=== PATIENT | female | born 1945 | race Caucasian/White ===

== ENCOUNTER 2018-08-29 16:39 | Observation (INO) ==
--- NOTE | 2018-08-29 17:13 | ED ---
HPI General Chief Complaint: Altered Mental Status Stated Complaint: Memory Loss x2Days /Poss Hypertension Time Seen by Provider: 08/29/18 16:53 Source: patient and family Mode of arrival: ambulatory Limitations: no limitations History of Present Illness HPI narrative: Pleasant 72-year-old female is brought in by her family who has concerns of change of mental status. Patient denies any nausea vomiting diarrhea or fever. Denies any chest pain shortness of breath urinary or bowel symptoms. Denies any falls or head trauma. States that she has not noticed any facial asymmetry or extremity weakness. Symptom onset 2-3 days. States she does feel a little weird but nothing extreme. Patient did take an aspirin prior to arrival. 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 Completed antivirals. complaint: Reports altered mental status Onset (ago): day(s) (2-3) Timing confirmed by: family member Severity: mild Consistency of symptoms: constant Context: Reports other (Elevated blood pressure) Associated symptoms: Reports denies other symptoms Treatments prior to arrival: Reports other (none) Related Data Home Medications Medication Instructions Recorded Confirmed No Known Home Medications 08/29/18 08/29/18 Allergies Allergy/AdvReac Type Severity Reaction Status Date / Time No Known Allergies Allergy Verified 08/29/18 17:04 Review of Systems ROS: all other systems reviewed are negative [facility] Medical History Medical History Patient denies medical problems (Acute) Surgical History Surgical History History of tubal ligation (Acute) Social History Social History Substance History: No History of Abuse Smoking Status: Never smoker How Often Do You Have a Drink Containing Alcohol: 2 to 4 times a month Recent Travel in [facility] within the Last 8 Weeks: No Recent Out of Country Travel within the Last 8 Weeks: No Immunization History Tetanus Immunization: Unsure Exam Narrative Exam Narrative: GENERAL: Alert SKIN: Focused skin assessment warm/dry. HEAD: Atraumatic. Normocephalic. EYES: Pupils equal and round. No scleral icterus. No injection or drainage. ENT: No nasal bleeding or discharge. Mucous membranes pink and moist. NECK: Trachea midline. No JVD. CARDIOVASCULAR: Regular rate and rhythm. No murmur appreciated. RESPIRATORY: No accessory muscle use. Clear to auscultation. Breath sounds equal bilaterally. GASTROINTESTINAL: Abdomen soft, non-tender, nondistended. Hepatic and splenic margins not palpable. MUSCULOSKELETAL: No obvious deformities. No clubbing. No cyanosis. No edema. NEUROLOGICAL: Awake and alert. No obvious cranial nerve deficits. Motor grossly within normal limits. Normal speech. No extremity drift Patient appears to have intact long-term memory with deficits in short-term memory PSYCHIATRIC: Appropriate mood and affect; insight and judgment normal. Course Initial Documented Vital Signs Temperature 97.5 F L 08/29/18 16:43 Pulse Rate 57 L 08/29/18 16:43 Respiratory Rate 18 08/29/18 16:43 Blood Pressure 243/113 H 08/29/18 16:43 Pulse Oximetry 98 08/29/18 16:43 Last Documented Vital Signs Temperature 97.5 F L 08/29/18 16:43 Pulse Rate 61 08/29/18 17:58 Respiratory Rate 16 08/29/18 17:58 Blood Pressure 197/88 H 08/29/18 17:58 Pulse Oximetry 97 08/29/18 17:58 Medical Decision Making MDM Narrative Medical decision making narrative: Definite change in short-term memory with elevated white count unknown source, I think admission with MRI and neurology consult would be appropriate. Spoke with Dr. Spaulding who is in agreement will admit for observation Medical Screen Exam Complete: Yes Emergency Medical Condition: Yes Differential Diagnosis Differential Diagnosis: CVA, mass occupying lesion, electrolyte abnormality, sepsis Medical Records Medical records reviewed: Yes I reviewed the patient's medical records. Lab Data Lab results reviewed: Yes I reviewed the patient's lab results. Result diagrams: 08/29/18 17:00 08/29/18 17:00 Lab Results 08/29/18 08/29/18 08/29/18 Range/Units 16:57 17:00 17:00 CBC w Diff Auto diff final WBC 14.2 H (4.0-11.0) th/mm3 RBC 4.97 (4.00-5.30) mil/mm3 Hgb 15.4 H (11.6-15.3) gm/dL Hct 45.1 (35.0-46.0) % MCV 90.8 (80.0-100.0) fL MCH 31.0 (27.0-34.0) pg MCHC 34.2 (32.0-36.0) % RDW 11.9 (11.6-17.2) % Plt Count 242 (150-450) th/mm3 MPV 8.5 (7.0-11.0) fL Neut % (Auto) 89.1 H (16.0-70.0) % Lymph % (Auto) 6.2 L (9.0-44.0) % [place] % (Auto) 3.8 (0.0-8.0) % Eos % (Auto) 0.5 (0.0-4.0) % Baso % (Auto) 0.4 (0.0-2.0) % Neut # (Auto) 12.6 H (1.8-7.7) th/mm3 Lymph # (Auto) 0.9 L (1.0-4.8) th/mm3 [place] # (Auto) 0.5 (0.0-0.9) th/mm3 Eos # (Auto) 0.1 (0.0-0.4) th/mm3 Baso # (Auto) 0.1 (0.0-0.2) th/mm3 WBC Differential . Differential Comment . Sodium (136-145) meq/L Potassium (3.5-5.1) meq/L Chloride (98-107) meq/L Carbon Dioxide (21.0-32.0) meq/L Anion Gap (5-15) meq/L BUN (7-18) mg/dL Creatinine (0.50-1.00) mg/dL Estimated GFR (>89) mL/min POC Glucose 115 H (68-110) mg/dl Random Glucose (74-106) mg/dL Lactic Acid (0.4-2.0) mmol/L Calcium (8.5-10.1) mg/dL Magnesium (1.5-2.5) mg/dL Total Bilirubin (0.2-1.0) mg/dL AST (15-37) U/L ALT (10-53) U/L Alkaline Phosphatase (45-117) U/L Ammonia (11-32) mcmol/L Troponin I (0.02-0.05) ng/mL Total Protein (6.4-8.2) g/dL Albumin (3.4-5.0) g/dL Ur Collection Type Clean catch Urine Color Straw (Yellw/Straw) Urine Clarity Clear (Clear) Urine pH 7.5 (5.0-8.5) Ur Specific [place] 1.020 (1.002-1.035) Urine Protein Trace (Neg-Trace) mg/dL Urine Glucose (UA) Negative (Negative) mg/dL Urine Ketones 15 H (Negative) mg/dL Urine Occult Blood Small H (Negative) Urine Nitrate Negative (Negative) Urine Bilirubin Negative (Negative) Urine Urobilinogen 0.2 (Less than 2) mg/dL Ur Leukocyte Esterase Negative (Negative) Urine RBC 0-3 (0-3) /hpf Urine WBC 0-5 (0-5) /hpf Ur Squamous Epith Cells 0-5 (0-5) /hpf Micro UA Comment Culture not ind Ur Microscopic Review Microscopic reviewed Urine Culture Comments Culture not ind 08/29/18 08/29/18 08/29/18 Range/Units 17:00 17:10 17:10 CBC w Diff WBC (4.0-11.0) th/mm3 RBC (4.00-5.30) mil/mm3 Hgb (11.6-15.3) gm/dL Hct (35.0-46.0) % MCV (80.0-100.0) fL MCH (27.0-34.0) pg MCHC (32.0-36.0) % RDW (11.6-17.2) % Plt Count (150-450) th/mm3 MPV (7.0-11.0) fL Neut % (Auto) (16.0-70.0) % Lymph % (Auto) (9.0-44.0) % [place] % (Auto) (0.0-8.0) % Eos % (Auto) (0.0-4.0) % Baso % (Auto) (0.0-2.0) % Neut # (Auto) (1.8-7.7) th/mm3 Lymph # (Auto) (1.0-4.8) th/mm3 [place] # (Auto) (0.0-0.9) th/mm3 Eos # (Auto) (0.0-0.4) th/mm3 Baso # (Auto) (0.0-0.2) th/mm3 WBC Differential Differential Comment Sodium 138 (136-145) meq/L Potassium 3.3 L (3.5-5.1) meq/L Chloride 101 (98-107) meq/L Carbon Dioxide 28.1 (21.0-32.0) meq/L Anion Gap 9 (5-15) meq/L BUN 13 (7-18) mg/dL Creatinine 0.95 (0.50-1.00) mg/dL Estimated GFR 58 L (>89) mL/min POC Glucose (68-110) mg/dl Random Glucose 118 H (74-106) mg/dL Lactic Acid 0.8 (0.4-2.0) mmol/L Calcium 9.1 (8.5-10.1) mg/dL Magnesium 2.2 (1.5-2.5) mg/dL Total Bilirubin 0.5 (0.2-1.0) mg/dL AST 22 (15-37) U/L ALT 35 (10-53) U/L Alkaline Phosphatase 81 (45-117) U/L Ammonia 11 (11-32) mcmol/L Troponin I Less than 0.02 L (0.02-0.05) ng/mL Total Protein 7.5 (6.4-8.2) g/dL Albumin 4.1 (3.4-5.0) g/dL Ur Collection Type Urine Color (Yellw/Straw) Urine Clarity (Clear) Urine pH (5.0-8.5) Ur Specific [place] (1.002-1.035) Urine Protein (Neg-Trace) mg/dL Urine Glucose (UA) (Negative) mg/dL Urine Ketones (Negative) mg/dL Urine Occult Blood (Negative) Urine Nitrate (Negative) Urine Bilirubin (Negative) Urine Urobilinogen (Less than 2) mg/dL Ur Leukocyte Esterase (Negative) Urine RBC (0-3) /hpf Urine WBC (0-5) /hpf Ur Squamous Epith Cells (0-5) /hpf Micro UA Comment Ur Microscopic Review Urine Culture Comments Imaging Data Radiologist's impression: Head CT 08/29/18 17:04 CONCLUSION: 1. No acute intracranial abnormalities. . ECG Data Attestation: I personally reviewed and interpreted this ECG as follows: (Sinus bradycardia, rate of 56, no ST segment elevations or depressions) Discharge Plan Discharge Disposition Patient Disposition: 30 Still Patient Discharge Condition Condition: Fair Discharge Details Diagnosis: Change in mental status, Leukocytosis Physicians Team ED Provider: Ismael Jovel Primary Care Provider: Dell Ennis Rxs /Orders / Referrals /Forms Prescriptions: No Action No Known Home Medications RF: 0 Discharge Interventions Interventions: Vital Signs Last Done: 08/29/18 17:58 Status ED Status: With Doctor
[2018-08-29 17:16] LABS: Bilirubin,Urine Negative (Negative); Clarity,Urine Clear (Clear); Glucose,Urine (UA) Negative (Negative); Leukocyte Esterase,Urine Negative (Negative); Nitrite,Urine Negative (Negative); PH,Urine 7.5 (5.0-8.5); Urobilinogen,Urine 0.2 mg/dL (Less than 2)
[2018-08-29 17:21] LABS: Baso # (Auto) 0.1 th/mm3 (0.0-0.2); Baso % (Auto) 0.4 % (0.0-2.0); Eos # (Auto) 0.1 th/mm3 (0.0-0.4); Eos % (Auto) 0.5 % (0.0-4.0); Hematocrit 45.1 % (35.0-46.0); Hemoglobin 15.4 gm/dL (11.6-15.3); Lymph # (Auto) 0.9 th/mm3 (1.0-4.8); Lymph % (Auto) 6.2 % (9.0-44.0); Mean Corpuscular HGB Conc 34.2 % (32.0-36.0); Mean Corpuscular Volume 90.8 fL (80.0-100.0); Mean Platelet Volume 8.5 fL (7.0-11.0); Mono # (Auto) 0.5 th/mm3 (0.0-0.9); Mono % (Auto) 3.8 % (0.0-8.0); Neut # (Auto) 12.6 th/mm3 (1.8-7.7); Neut % (Auto) 89.1 % (16.0-70.0); Platelet Count 242 th/mm3 (150-450); Red Blood Count 4.97 mil/mm3 (4.00-5.30); Red Cell Distribution Width 11.9 % (11.6-17.2); White Blood Count 14.2 th/mm3 (4.0-11.0)
[2018-08-29 17:28] LABS: Color,Urine Straw (Yellw/Straw)
[2018-08-29 17:30] LABS: RBC,Urine 0-3 /hpf (0-3); Squamous Epithelial Cell,Urine 0-5 /hpf (0-5); WBC,Urine 0-5 /hpf (0-5)
--- NOTE | 2018-08-29 17:34 | CT ---
EXAM DATE: 08/29/2018 5:11 PM EDT AGE/SEX: 72 years / Female INDICATIONS: Altered Mental Status CLINICAL DATA: This is the patient's initial encounter. Patient reports that signs and symptoms have been present for 1 day and indicates a pain score of 0/10. MEDICAL/SURGICAL HISTORY: None. Tubal ligation. RADIATION DOSE: 54.46 CTDI (mGy) COMPARISON: [facility], CT BRAIN W/O CONTRAST, 12/30/2015. . TECHNIQUE: CT of the head without contrast. Using automated exposure control and adjustment of the mA and/or kV according to patient size, radiation dose was kept as low as reasonably achievable to ob tain optimal diagnostic quality images. DICOM format image data is available electronically for revi ew and comparison. FINDINGS: Cerebrum: The ventricles are normal for age. No evidence of midline shift, mass lesion, hemorrhage or acute infarction. No extraaxial fluid collections are seen. Posterior Fossa: The cerebellum and brainstem are intact. The 4th ventricle is midline. The cerebe llopontine angle is unremarkable. Extracranial: The visualized portion of the orbits is intact. Skull: The calvaria is intact. No evidence of skull fracture. CONCLUSION: 1. No acute intracranial abnormalities. . Electronically signed by: Jaison Myles MD 08/29/2018 5:32 PM EDT
[2018-08-29 17:37] LABS: Chloride 101 meq/L (98-107); Potassium 3.3 meq/L (3.5-5.1); Sodium 138 meq/L (136-145)
[2018-08-29 17:40] LABS: Calcium 9.1 mg/dL (8.5-10.1)
[2018-08-29 17:41] LABS: Albumin 4.1 g/dL (3.4-5.0); Anion Gap 9 meq/L (5-15); Blood Urea Nitrogen 13 mg/dL (7-18); Carbon Dioxide 28.1 meq/L (21.0-32.0); Glucose,Random 118 mg/dL (74-106); Magnesium 2.2 mg/dL (1.5-2.5)
[2018-08-29 17:43] LABS: Alanine Aminotransferase 35 U/L (10-53)
[2018-08-29 17:44] LABS: Aspartate Aminotransferase 22 U/L (15-37); Glomerular Filtration Rate 58 mL/min (>89)
[2018-08-29 17:45] LABS: Total Protein 7.5 g/dL (6.4-8.2)
[2018-08-29 17:46] LABS: Alkaline Phosphatase 81 U/L (45-117)
[2018-08-29] MEDS ORDERED: Bisacodyl 10 MG Supp RECTAL PRN (18:15)
[2018-08-29] MEDS ORDERED: Acetaminophen 325 MG Tablet PO PRN (18:15)
[2018-08-29] MEDS: Sod Chloride 0.9% Inj 1,000 ML IV.CONT SCH (18:31)
[2018-08-29] MEDS ORDERED: Gadobutrol PF 7.5 MMOL/7.5 ML Vial (for RAD) IV.SIG ONE (19:24)
--- NOTE | 2018-08-29 19:38 | MR ---
EXAM DATE: 08/29/2018 6:44 PM EDT AGE/SEX: 72 years / Female INDICATIONS: Memory loss. CLINICAL DATA: This is the patient's initial encounter. Patient reports that signs and symptoms have been present for 1 day and indicates a pain score of 0/10. MEDICAL/SURGICAL HISTORY: Hypertension. . Orthopedic. COMPARISON: No prior exams available for comparison. TECHNIQUE: Multiplanar, multisequence examination of the brain was performed without and with 6cc ml Gadavist (gadobutrol) contrast as a single exam dose. FINDINGS: There is abnormal signal in the insular cortex and abnormal signal and encephalomalacia in the left t emporal lobe. This could be related to prior vascular insult or infection or trauma. Mild white matter ischemic changes. No mass effect or midline shift. No hydrocephalus. Postcontrast n o abnormal enhancing lesions are identified. CONCLUSION: 1. Abnormal signal within the insular cortex associated with encephalomalacia of the medial left tem poral lobe including the hippocampal region. Differential diagnosis includes prior infection, trauma or vascular insult. 2. No recent infarct identified. Electronically signed by: Jaison Myles MD 08/29/2018 7:36 PM EDT
[2018-08-29] MEDS: SODIUM CHLOR 0.9% IV.SIG SCH (21:50)
[2018-08-29] MEDS: ACYCLOVIR IV.SIG SCH (21:50)
[2018-08-29] MEDS: Thiamine Inj 100 MG in Sodium Chlor 0.9% Inj 100 ML IV.SIG SCH (21:51)
[2018-08-30] MEDS: Sod Chloride 0.9% Inj 1,000 ML IV.CONT SCH ×3 (05:23→15:25)
[2018-08-30] MEDS: ACYCLOVIR IV.SIG SCH ×3 (06:35→21:00)
[2018-08-30] MEDS: SODIUM CHLOR 0.9% IV.SIG SCH ×3 (06:35→21:00)
[2018-08-30 08:10] LABS: Hematocrit 45.4 % (35.0-46.0); Hemoglobin 15.6 gm/dL (11.6-15.3); Lymph % (Auto) 7.5 % (9.0-44.0); Mean Corpuscular HGB Conc 34.3 % (32.0-36.0); Mean Corpuscular Hemoglobin 30.9 pg (27.0-34.0); Mean Corpuscular Volume 90.1 fL (80.0-100.0); Mean Platelet Volume 9.1 fL (7.0-11.0); Neut % (Auto) 84.1 % (16.0-70.0); Platelet Count 231 th/mm3 (150-450); Red Blood Count 5.04 mil/mm3 (4.00-5.30); Red Cell Distribution Width 12.3 % (11.6-17.2); White Blood Count 14.3 th/mm3 (4.0-11.0)
[2018-08-30 08:11] LABS: Baso # (Auto) 0.2 th/mm3 (0.0-0.2); Baso % (Auto) 1.3 % (0.0-2.0); Eos % (Auto) 0.1 % (0.0-4.0); Lymph # (Auto) 1.1 th/mm3 (1.0-4.8)
[2018-08-30 08:15] LABS: Potassium 4.1 meq/L (3.5-5.1)
[2018-08-30 08:21] LABS: Calcium 8.3 mg/dL (8.5-10.1); Carbon Dioxide 25.2 meq/L (21.0-32.0)
--- NOTE | 2018-08-30 08:54 | P.HPIM ---
History of Present Illness Primary Care Physician: Dell Ennis MD Chief Complaint: confusion History of Present Illness: patient is a 72 y/o female with history of viral encephalitis in the past was brought to ER with altered mentals status. at the time of my evaluation she was awake and fully oriented. she says that she doesn't fully remember what happened yesterday but she says that ' I was brought to ER by my children because I was confused'. she denies any fever or chills. she's complaining of mild headache but with no nausea or vomiting. she was also complaining of some chest pressure with no sob, diaphoresis. Review of Systems All other systems reviewed negative except as stated in HPI PMFSH - History History Provided By: Patient - Medical History Medical History: Medical History (Last Reviewed 08/30/18 @ 08:51 by Logan Spaulding MD) Encephalitis - Surgical History Surgical History: Surgical History (Last Reviewed 08/30/18 @ 08:51 by Logan Spaulding MD) History of tubal ligation - Family History Family History: Family History (Last Reviewed 08/30/18 @ 08:51 by Logan Spaulding MD) Other No pertinent family history - Tobacco History Second Hand Smoke Exposure: No Tobacco Use In Past 30 Days: No Smoking Status: Never smoker - Alcohol History How Often Do You Have a Drink Containing Alcohol: Never - Substance Use History Substance History: No History of Abuse - Travel History Recent Travel in the [place] Within the Last 8 Weeks: No Recent Travel Out of the Country Within the Last 8 Weeks: No - Immunization History Tetanus Immunization: Unsure Medications and Allergies Active Medications: Active Medications Acetaminophen (Tylenol) 650 mg PO Q4H PRN PRN Reason: Temp > 100.4 Al Hydroxide/Mg Hydroxide (Milk Of Magnesia Liq) 30 ml PO Q12H PRN PRN Reason: Mild Constipation Bisacodyl (Dulcolax Supp) 10 mg RECTAL DAILY PRN PRN Reason: SEVERE CONSITIPATION Clonidine HCl (Catapres) 0.1 mg PO Q6H PRN PRN Reason: SYS BP GREATER THAN 180 MMHG Sodium Chloride (Ns Inj) 1,000 mls @ 100 mls/hr IV.CONT .Q10H [facility] Last Admin: 08/30/18 05:23 Dose: 100 mls/hr Acyclovir Sodium 610 mg/ (Sodium Chloride) 112.2 mls @ 112.2 mls/hr IV.SIG Q8H [facility] Last Infusion: 08/30/18 08:00 Dose: Infused Thiamine HCl 100 mg/ Sodium (Chloride) 101 mls @ 100 mls/hr IV.SIG DAILY@1999 [facility] Last Infusion: 08/30/18 01:59 Dose: Infused Lactulose (Lactulose Liq) 30 ml PO DAILY PRN PRN Reason: SEVERE CONSITIPATION Ondansetron HCl (Zofran Inj) 4 mg IV.PUSH Q6H PRN PRN Reason: NAUSEA OR VOMITING Sennosides (Senokot) 17.2 mg PO Q12H PRN PRN Reason: Moderate Constipation Sodium Chloride (Ns Flush) 2 ml IV.FLUSH PRN PRN PRN Reason: FLUSH AFTER USING IV ACCESS Allergies Allergy/AdvReac Type Severity Reaction Status Date / Time No Known Allergies Allergy Verified 08/29/18 17:04 Home Medications Medication Instructions Recorded Confirmed Type No Known Home Medications 08/29/18 08/29/18 History Exam Vital signs: Vital Signs 08/29/18 16:43 08/29/18 17:00 08/29/18 17:18 Temperature 97.5 F L Pulse Rate 57 L 60 Respiratory Rate 18 18 Blood Pressure 243/113 H 166/93 H Pulse Oximetry 98 99 99 08/29/18 17:58 08/29/18 18:55 08/29/18 19:39 Temperature Pulse Rate 61 62 64 Respiratory Rate 16 16 16 Blood Pressure 197/88 H 202/78 H 183/85 H Pulse Oximetry 97 98 98 08/29/18 20:00 08/30/18 00:00 08/30/18 04:00 Temperature 97.2 F L 98.1 F 97.4 F L Pulse Rate 64 60 62 Respiratory Rate 20 20 20 Blood Pressure 197/88 H 179/82 H 160/78 H Pulse Oximetry 98 98 99 Intake & Output 08/29/18 08/30/18 08/30/18 18:59 06:59 18:59 Intake Total 1483.2 / 1483.2 112.2 / 112.2 Balance 1483.2 / 1483.2 112.2 / 112.2 Weight 61.2 kg 61.9 kg Intake: IV 1213.2 / 1213.2 112.2 / 112.2 NS Inj 1,000 ML @ 100 mls/hr IV 1000 / 1000 .CONT .Q10H [facility] Rx#:[id number] Zovirax Inj 610 MG In NS Inj 112.2 / 112.2 112.2 / 112.2 100 ML @ 112.2 mls/hr IV.SIG Q8H [facility] Rx#:[id number] Thiamine Inj 100 MG In NS Inj 101 / 101 100 ML @ 100 mls/hr IV.SIG DAILY@2000 [facility] Rx#:[id number] Oral 270 / 270 Other: # Voids 2 Weight On Admission 61.9 kg - Constitutional no acute distress - Routine HEENT Exam Eye: Present: PERRL - Routine Neck Exam Present: supple - Routine Respiratory Exam Present: CTA bilaterally - Routine Cardiovascular Exam Present: RRR - Routine Abdominal Exam Present: soft - Routine Extremities Exam Comments: no pedal edema. - Routine Neurological Exam Present: alert, oriented X3 Results - Labs CBC & Chem 7: 08/30/18 07:30 08/30/18 07:30 Labs: Short CBC 08/29/18 08/30/18 Range/Units 17:00 07:30 WBC 14.2 H 14.3 H (4.0-11.0) th/mm3 Hgb 15.4 H 15.6 H (11.6-15.3) gm/dL Hct 45.1 45.4 (35.0-46.0) % Plt Count 242 231 (150-450) th/mm3 BMP 08/29/18 08/30/18 17:00 07:30 Sodium 138 139 Potassium 3.3 L 4.1 D Chloride 101 103 Carbon Dioxide 28.1 25.2 BUN 13 8 Creatinine 0.95 0.80 Calcium 9.1 8.3 L D Cardiac Enzymes 08/29/18 Range/Units 17:00 Troponin I Less than 0.02 L (0.02-0.05) ng/mL Liver Function 08/29/18 Range/Units 17:00 Total Bilirubin 0.5 (0.2-1.0) mg/dL AST 22 (15-37) U/L ALT 35 (10-53) U/L Alkaline Phosphatase 81 (45-117) U/L Albumin 4.1 (3.4-5.0) g/dL Urine 08/29/18 Range/Units 17:00 Urine Color Straw (Yellw/Straw) Urine Clarity Clear (Clear) Urine pH 7.5 (5.0-8.5) Ur Specific [place] 1.020 (1.002-1.035) Urine Protein Trace (Neg-Trace) mg/dL Urine Glucose (UA) Negative (Negative) mg/dL - Imaging Impressions Head MRI 08/29/18 00:00 CONCLUSION: 1. 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 Differential diagnosis includes prior infection, trauma or vascular insult. 2. No recent infarct identified. Head CT 08/29/18 17:04 CONCLUSION: 1. No acute intracranial abnormalities. . Caprini VTE Risk Assessment Caprini VTE Risk Assessment: Moderate/High Risk (score >= 2) Caprini Risk Assessment Model: Point Value = 1 Point Value = 2 Point Value = 3 Point Value = 5 Age 41-60 Minor surgery BMI > 25 kg/m2 Swollen legs Varicose veins or History of unexplained or recurrent spontaneous Oral contraceptives or hormone replacement Sepsis (< 1 month) Serious lung disease, including pneumonia (< 1 month) Abnormal pulmonary function Acute myocardial infarction Congestive heart failure (< 1 month) History of inflammatory bowel disease Medical patient at bed rest Age 61-74 Arthroscopic surgery Major open surgery (> 45 min) Laparoscopic surgery (> 45 min) Malignancy Confined to bed (> 72 hours) Immobilizing plaster cast Central venous access Age >= 75 History of VTE Family history of VTE Factor V Leiden Prothrombin [id number] Lupus anticoagulant Anticardiolipin antibodies Elevated serum homocysteine Heparin-induced thrombocytopenia Other congenital or acquired thrombophilia Stroke (< 1 month) Elective arthroplasty Hip, pelvis, or leg fracture Acute spinal cord injury (< 1 month) Prophylaxis Regimen: Total Risk Factor Score Risk Level Prophylaxis Regimen 0-1 Low Early ambulation 2 Moderate Order ONE of the following: *Sequential Compression Device (SCD) *Heparin 5000 units SQ BID 3-4 Higher Order ONE of the following medications: *Heparin 5000 units SQ TID *Enoxaparin/Lovenox 40 mg SQ daily (WT < 150 kg, CrCl > 30 mL/min) *Enoxaparin/Lovenox 30 mg SQ daily (WT < 150 kg, CrCl > 10-29 mL/min) *Enoxaparin/Lovenox 30 mg SQ BID (WT < 150 kg, CrCl > 30 mL/min) AND/OR *Sequential Compression Device (SCD) 5 or more Highest Order ONE of the following medications: *Heparin 5000 units SQ TID (Preferred with Epidurals) *Enoxaparin/Lovenox 40 mg SQ daily (WT < 150 kg, CrCl > 30 mL/min) *Enoxaparin/Lovenox 30 mg SQ daily (WT < 150 kg, CrCl > 10-29 mL/min) *Enoxaparin/Lovenox 30 mg SQ BID (WT < 150 kg, CrCl > 30 mL/min) AND *Sequential Compression Device (SCD) Assessment and Plan - Plan A/P - acute encephalopathy with history of Encephalitis- now has much improved. 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 Differential diagnosis includes prior infection, trauma or vascular insult. continue with Acyclovir- Neurology consulted. -Hypokalemia; replaced. -DVT prophylaxis with SCD's. Discussed Condition With: the patient. Discharge Planning: pending neurology evaluation. H&P: Quality - VTE Deep Vein Thrombosis/Pulmonary Embolism Present on Admission: No
--- NOTE | 2018-08-30 11:57 | P.CONNEU ---
History of Present Illness Service: Neurology Primary Care Provider: Dell Ennis MD Chief Complaint: confusion History of Present Illness: 72-year-old female admitted for confusion. Blood pressure noted to be over 200/ 100 in the ER. She was started on IV acyclovir in the ER. Previous history of herpes encephalitis treated with IV acyclovir and her mental status improved. I believe she was treated 2 or 3 years ago. She was on Keppra Dilantin one-point alert does not appear to be at present. Patient currently denies any headache focal weakness vision loss-like disturbance. States she feels more clear headed. Review of Systems All other systems reviewed negative except as stated in HPI [facility] - History History Provided By: Patient - Medical History Medical History: Medical History (Last Reviewed 08/30/18 @ 09:23 by Tony Acosta) Encephalitis - Surgical History Surgical History: Surgical History (Last Reviewed 08/30/18 @ 09:23 by Tony Acosta) History of tubal ligation - Family History Family History: Family History (Last Reviewed 08/30/18 @ 09:23 by Tony Acosta) Other No pertinent family history - Tobacco History Second Hand Smoke Exposure: No Tobacco Use In Past 30 Days: No Smoking Status: Never smoker - Alcohol History How Often Do You Have a Drink Containing Alcohol: Never - Substance Use History Substance History: No History of Abuse - Travel History Recent Travel in the [place] Within the Last 8 Weeks: No Recent Travel Out of the Country Within the Last 8 Weeks: No - Immunization History Tetanus Immunization: Unsure Medications and Allergies Active Medications: Active Medications Acetaminophen (Tylenol) 650 mg PO Q4H PRN PRN Reason: Temp > 100.4/pain Last Admin: 08/30/18 11:04 Dose: 650 mg Al Hydroxide/Mg Hydroxide (Milk Of Magnbrady Liq) 30 ml PO Q12H PRN PRN Reason: Mild Constipation Bisacodyl (Dulcolax Supp) 10 mg RECTAL DAILY PRN PRN Reason: SEVERE CONSITIPATION Clonidine HCl (Catapres) 0.1 mg PO Q6H PRN PRN Reason: SYS BP GREATER THAN 180 MMHG Sodium Chloride (Ns Inj) 1,000 mls @ 100 mls/hr IV.CONT .Q10H [facility] Last Admin: 08/30/18 10:21 Dose: 100 mls/hr Acyclovir Sodium 610 mg/ (Sodium Chloride) 112.2 mls @ 112.2 mls/hr IV.SIG Q8H [facility] Last Infusion: 08/30/18 08:00 Dose: Infused Thiamine HCl 100 mg/ Sodium (Chloride) 101 mls @ 100 mls/hr IV.SIG DAILY@2000 JULI Last Infusion: 08/30/18 01:59 Dose: Infused Lactulose (Lactulose Liq) 30 ml PO DAILY PRN PRN Reason: SEVERE CONSITIPATION Ondansetron HCl (Zofran Inj) 4 mg IV.PUSH Q6H PRN PRN Reason: NAUSEA OR VOMITING Last Admin: 08/30/18 10:18 Dose: 4 mg Sennosides (Senokot) 17.2 mg PO Q12H PRN PRN Reason: Moderate Constipation Sodium Chloride (Ns Flush) 2 ml IV.FLUSH PRN PRN PRN Reason: FLUSH AFTER USING IV ACCESS Allergies Allergy/AdvReac Type Severity Reaction Status Date / Time No Known Allergies Allergy Verified 08/29/18 17:04 Home Medications Medication Instructions Recorded Confirmed Type No Known Home Medications 08/29/18 08/29/18 History Exam Vital signs: Vital Signs 08/29/18 16:43 08/29/18 17:00 08/29/18 17:18 Temperature 97.5 F L Pulse Rate 57 L 60 Respiratory Rate 18 18 Blood Pressure 243/113 H 166/93 H Pulse Oximetry 98 99 99 08/29/18 17:58 08/29/18 18:55 08/29/18 19:39 Temperature Pulse Rate 61 62 64 Respiratory Rate 16 16 16 Blood Pressure 197/88 H 202/78 H 183/85 H Pulse Oximetry 97 98 98 08/29/18 20:00 08/30/18 00:00 08/30/18 04:00 Temperature 97.2 F L 98.1 F 97.4 F L Pulse Rate 64 60 62 Respiratory Rate 20 20 20 Blood Pressure 197/88 H 179/82 H 160/78 H Pulse Oximetry 98 98 99 08/30/18 08:00 Temperature 98.1 F Pulse Rate 62 Respiratory Rate 16 Blood Pressure 168/86 H Pulse Oximetry 100 Intake & Output 08/29/18 08/30/18 08/30/18 18:59 06:59 18:59 Intake Total 1483.2 / 1483.2 1112.2 / 1112.2 Balance 1483.2 / 1483.2 1112.2 / 1112.2 Weight 61.2 kg 61.9 kg Intake: IV 1213.2 / 1213.2 1112.2 / 1112.2 NS Inj 1,000 ML @ 100 mls/hr IV 1000 / 1000 1000 / 1000 .CONT .Q10H JULI Rx#:[id number] Zovirax Inj 610 MG In NS Inj 112.2 / 112.2 112.2 / 112.2 100 ML @ 112.2 mls/hr IV.SIG Q8H JULI Rx#:[id number] Thiamine Inj 100 MG In NS Inj 101 / 101 100 ML @ 100 mls/hr IV.SIG DAILY@2000 JULI Rx#:[id number] Oral 270 / 270 Other: # Voids 2 Weight On Admission 61.9 kg Narrative: GENERAL: in NAD, looks well SKIN: Warm and dry. HEAD: Atraumatic. Normocephalic. EYES: Pupils equal and round. No scleral icterus. ENT: No nasal bleeding or discharge. Mucous membranes pink and moist. NECK: Trachea midline. No JVD. CARDIOVASCULAR: Regular rate and rhythm. RESPIRATORY: No accessory muscle use. GASTROINTESTINAL: Abdomen soft, non-tender, nondistended. MUSCULOSKELETAL: Extremities without clubbing, cyanosis, or edema. No obvious deformities. NEUROLOGICAL: Awake and alert. Oriented 2-3, slow speech was disoriented to exact date and year, was able to name the current and former president the name of her PCP. Was able to name repeat and repeat. No aphasia, no temporal tenderness, no nuchal rigidity fluent articulate, No facial asymmetry, OU 3-2mm , eomi, VFF, No drift, Motor grossly within normal limits. Five out of 5 muscle strength in the arms and legs. Tone normal in all 4 limbs, Sensory normal in all 4 extremities to pin, msr 1-2+ sym, no clonus, planterflexor, PSYCHIATRIC: Appropriate mood and affect; insight and judgment normal. - Constitutional no acute distress - Routine HEENT Exam Head: Present: normocephalic Eye: Present: EOMI Results - Labs CBC & Chem 7: 08/30/18 07:30 08/30/18 07:30 Labs: Laboratory Results - last 24 hr 08/29/18 08/29/18 08/29/18 16:57 17:00 17:00 CBC w Diff Auto diff final WBC 14.2 H RBC 4.97 Hgb 15.4 H Hct 45.1 MCV 90.8 MCH 31.0 MCHC 34.2 RDW 11.9 Plt Count 242 MPV 8.5 Neut % (Auto) 89.1 H Lymph % (Auto) 6.2 L [place] % (Auto) 3.8 Eos % (Auto) 0.5 Baso % (Auto) 0.4 Neut # (Auto) 12.6 H Lymph # (Auto) 0.9 L [place] # (Auto) 0.5 Eos # (Auto) 0.1 Baso # (Auto) 0.1 WBC Differential . Differential Comment . Sodium Potassium Chloride Carbon Dioxide Anion Gap BUN Creatinine Estimated GFR POC Glucose 115 H Random Glucose Lactic Acid Calcium Magnesium Total Bilirubin AST ALT Alkaline Phosphatase Ammonia Troponin I Total Protein Albumin Ur Collection Type Clean catch Urine Color Straw Urine Clarity Clear Urine pH 7.5 Ur Specific Jackson 1.020 Urine Protein Trace Urine Glucose (UA) Negative Urine Ketones 15 H Urine Occult Blood Small H Urine Nitrate Negative Urine Bilirubin Negative Urine Urobilinogen 0.2 Ur Leukocyte Esterase Negative Urine RBC 0-3 Urine WBC 0-5 Ur Squamous Epith Cells 0-5 Micro UA Comment Culture not ind Ur Microscopic Review Microscopic reviewed Urine Culture Comments Culture not ind 08/29/18 08/29/18 08/29/18 17:00 17:10 17:10 CBC w Diff WBC RBC Hgb Hct MCV MCH MCHC RDW Plt Count MPV Neut % (Auto) Lymph % (Auto) [place] % (Auto) Eos % (Auto) Baso % (Auto) Neut # (Auto) Lymph # (Auto) [place] # (Auto) Eos # (Auto) Baso # (Auto) WBC Differential Differential Comment Sodium 138 Potassium 3.3 L Chloride 101 Carbon Dioxide 28.1 Anion Gap 9 BUN 13 Creatinine 0.95 Estimated GFR 58 L POC Glucose Random Glucose 118 H Lactic Acid 0.8 Calcium 9.1 Magnesium 2.2 Total Bilirubin 0.5 AST 22 ALT 35 Alkaline Phosphatase 81 Ammonia 11 Troponin I Less than 0.02 L Total Protein 7.5 Albumin 4.1 Ur Collection Type Urine Color Urine Clarity Urine pH Ur Specific Jackson Urine Protein Urine Glucose (UA) Urine Ketones Urine Occult Blood Urine Nitrate Urine Bilirubin Urine Urobilinogen Ur Leukocyte Esterase Urine RBC Urine WBC Ur Squamous Epith Cells Micro UA Comment Ur Microscopic Review Urine Culture Comments 08/30/18 08/30/18 08/30/18 07:30 07:30 07:30 CBC w Diff Auto diff final WBC 14.3 H RBC 5.04 Hgb 15.6 H Hct 45.4 MCV 90.1 MCH 30.9 MCHC 34.3 RDW 12.3 Plt Count 231 MPV 9.1 Neut % (Auto) 84.1 H Lymph % (Auto) 7.5 L [place] % (Auto) 7.0 Eos % (Auto) 0.1 Baso % (Auto) 1.3 Neut # (Auto) 12.0 H Lymph # (Auto) 1.1 [place] # (Auto) 1.0 H Eos # (Auto) 0.0 Baso # (Auto) 0.2 WBC Differential . Differential Comment . Sodium 139 Potassium 4.1 D Chloride 103 Carbon Dioxide 25.2 Anion Gap 11 BUN 8 Creatinine 0.80 Estimated GFR 71 L POC Glucose Random Glucose 115 H Lactic Acid Calcium 8.3 L D Magnesium Total Bilirubin AST ALT Alkaline Phosphatase Ammonia Troponin I 0.08 H Total Protein Albumin Ur Collection Type Urine Color Urine Clarity Urine pH Ur Specific Jackson Urine Protein Urine Glucose (UA) Urine Ketones Urine Occult Blood Urine Nitrate Urine Bilirubin Urine Urobilinogen Ur Leukocyte Esterase Urine RBC Urine WBC Ur Squamous Epith Cells Micro UA Comment Ur Microscopic Review Urine Culture Comments - Imaging Impressions Head MRI 08/29/18 00:00 CONCLUSION: 1. 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 Differential diagnosis includes prior infection, trauma or vascular insult. 2. No recent infarct identified. Head CT 08/29/18 17:04 CONCLUSION: 1. No acute intracranial abnormalities. . Review/Management - Diagnosis (1) Hypertensive encephalopathy Code(s): I67.4 - Hypertensive encephalopathy Status: Acute Current Visit: Yes (2) History of herpes encephalitis Code(s): Z86.19 - Personal history of other infectious and parasitic diseases Status: Acute Current Visit: Yes (3) Change in mental status Code(s): R41.82 - Altered mental status, unspecified Status: Acute Current Visit: Yes (4) Leukocytosis Code(s): D72.829 - Elevated white blood cell count, unspecified Status: Acute Current Visit: Yes - Review/Management Plan: Etiologies for recurrent confusion would include hypertensive encephalopathy, versus partial seizures secondary to temporal lobe injury from encephalitis versus recurrent [employer] infection She is supposed to be on Keppra and Dilantin based on previous EEGs. At the least Keppra it appears she is not on any seizure medication at present Recommendation EEG Resume Keppra MRI brain CSF studies IV acyclovir for now Blood pressure control Discussed with patient, medical No driving (3) Change in mental status Qualifiers: Altered mental status type: disorientation Qualified Code(s): R41.0 - Disorientation, unspecified (4) Leukocytosis Qualifiers: Leukocytosis type: unspecified Qualified Code(s): D72.829 - Elevated white blood cell count, unspecified
[2018-08-30] MEDS ORDERED: amLODIPine 5 MG Tablet PO SCH (14:00)
[2018-08-30] MEDS: hydroCHLOROthiazide 25 MG Tablet PO SCH (14:16)
[2018-08-30] MEDS: levETIRAcetam 500 MG Tablet PO SCH ×2 (14:17→20:38)
[2018-08-30 14:52] LABS: C-Reactive Protein 0.45 mg/dL (0.00-0.30)
[2018-08-30 15:02] LABS: Thyroid Stimulating Hormone 0.932 uIU/mL (0.358-3.740)
--- NOTE | 2018-08-30 17:57 | P.RAD ---
Post Procedure Progress Note - Pre Procedure Diagnosis (1) Change in mental status - Post Procedure Diagnosis (1) Change in mental status - Procedure Information Procedure Date: 08/30/18 Supervising Radiologist: Brandon Brandt Jr, MD Proceduralist/Assist: Ulices Pinto Anesthesia: Local - Plan of Activity Patient to Unit: Nursing Unit Patient Condition: Good See PACS Report for procedural detail/treatment. Spinal Procedure Lumbar Puncture L4-L5 Fluid Removal (CCs): 12 Fluid Description: Clear Puncture Time: 17:48 Findings: Clear CSF obtained. Sample to lab. Plan: Bedrest 2 hours.
[2018-08-30 18:52] LABS: Lymphocytes, CSF 0 %; Neutrophils,CSF 0 %; RBC on Tube 4 2 /mm3
[2018-08-30] MEDS: Thiamine Inj 100 MG in Sodium Chlor 0.9% Inj 100 ML IV.SIG SCH (20:38)
--- NOTE | 2018-08-30 21:57 | ECG ---
Date Performed: 08/30/2018 Time Performed: 10:00:08 PTAGE: 72 years EKG: Sinus rhythm NONSPECIFIC T WAVE CHANGES PREVIOUS TRACING : 08/29/2018 17.12 Compared to previous tracing, T wave changes present DOCTOR: Ovi Bashir Interpretating Date/Time 08/30/2018 21:56:03
--- NOTE | 2018-08-30 22:24 | ECG ---
Date Performed: 08/29/2018 Time Performed: 17:12:52 PTAGE: 72 years EKG: SINUS BRADYCARDIA BORDERLINE ECG PREVIOUS TRACING : 11/30/2015 17.22 Compared to previous tracing, rate slower DOCTOR: Ovi Bashir Interpretating Date/Time 08/30/2018 22:23:46
[2018-08-31] MEDS: Sod Chloride 0.9% Inj 1,000 ML IV.CONT SCH ×3 (00:34→22:10)
[2018-08-31] MEDS: SODIUM CHLOR 0.9% IV.SIG SCH ×3 (06:28→22:18)
[2018-08-31] MEDS: ACYCLOVIR IV.SIG SCH ×3 (06:28→22:18)
--- NOTE | 2018-08-31 06:39 | MG ---
cc: Saleem Haddad MD EEG NUMBER: [id number] DESCRIPTION: A 5-6 Hz posterior rhythm, 20-40 microvolts, followed by bursts of 2-3 Hz paroxysmal delta activity. The patient noted to be asleep at that time. Polyfrequency is noted. Appeared to be snoring, poorly formed sleep architecture though. Paroxysmal bursts of 2 Hz high amplitude delta activity. Slight increase in beta frequencies. Reduced driving with photic stimulation. Single lead EKG showing sinus rhythm. INTERPRETATION: Mild encephalopathy in sleep state. Clinical correlation. MD GELY Guajardo/bennie , 06:14 AM , 06:20 AM
[2018-08-31 06:56] LABS: Baso # (Auto) 1.7 th/mm3 (0.0-0.2); Baso % (Auto) 6.5 % (0.0-2.0); Hematocrit 48.7 % (35.0-46.0); Hemoglobin 17.7 gm/dL (11.6-15.3); Lymph # (Auto) 0.9 th/mm3 (1.0-4.8); Lymph % (Auto) 3.3 % (9.0-44.0); Mean Corpuscular Volume 87.8 fL (80.0-100.0); Mean Platelet Volume 9.4 fL (7.0-11.0); Mono # (Auto) 2.3 th/mm3 (0.0-0.9); Neut % (Auto) 81.2 % (16.0-70.0); Platelet Count 253 th/mm3 (150-450); Red Blood Count 5.54 mil/mm3 (4.00-5.30); Red Cell Distribution Width 11.9 % (11.6-17.2); White Blood Count 25.9 th/mm3 (4.0-11.0)
[2018-08-31 07:12] LABS: Mean Corpuscular HGB Conc 36.4 % (32.0-36.0)
[2018-08-31 07:27] LABS: Lymphocytes 4 % (9-44); Monocytes 11 % (0-8)
[2018-08-31 07:28] LABS: Platelet Estimate Normal (Normal); Platelet Morphology Normal (Normal); RBC Morphology Normal (Normal)
--- NOTE | 2018-08-31 07:39 | P.PNIM ---
Subjective Interval history: f/u; altered mental status/ hypertension in no acute distress. denies chest pain, headache or nausea. no fever. BP trend noted. Physical Exam Vital signs: Vital Signs 08/30/18 08:00 08/30/18 12:00 08/30/18 13:23 Temperature 98.1 F 98.0 F Pulse Rate 62 67 Respiratory Rate 16 16 Blood Pressure 168/86 H 198/98 H 200/98 H Pulse Oximetry 100 100 08/30/18 16:00 08/30/18 17:31 08/30/18 17:55 Temperature 98.2 F 98.4 F Pulse Rate 76 76 Respiratory Rate 17 16 Blood Pressure 222/100 H 212/90 H 178/82 H Pulse Oximetry 100 100 08/30/18 20:00 08/30/18 20:52 08/31/18 00:00 Temperature 97.9 F 96.5 F L Pulse Rate 72 76 Respiratory Rate 18 18 Blood Pressure 196/93 H 142/84 H 191/90 H Pulse Oximetry 98 08/31/18 04:00 Temperature 97.9 F Pulse Rate 96 H Respiratory Rate 18 Blood Pressure 185/96 H Pulse Oximetry 97 Intake & Output 08/30/18 08/31/18 08/31/18 18:59 06:59 18:59 Intake Total 1944.4 / 1944.4 1243.2 / 1243.2 Output Total 200 / 200 Balance 1944.4 / 1944.4 1043.2 / 1043.2 Weight 63 kg Intake: IV 1224.4 / 1224.4 1213.2 / 1213.2 NS Inj 1,000 ML @ 100 mls/hr IV 1000 / 1000 1000 / 1000 .CONT .Q10H JULI Rx#:[id number] Zovirax Inj 610 MG In NS Inj 224.4 / 224.4 112.2 / 112.2 100 ML @ 112.2 mls/hr IV.SIG Q8H JULI Rx#:[id number] Thiamine Inj 100 MG In NS Inj 101 / 101 100 ML @ 100 mls/hr IV.SIG DAILY@2000 JULI Rx#:[id number] Oral 720 / 720 30 / 30 Output: Urine 200 / 200 Other: # Voids 4 # Bowel Movements 0 - Constitutional no acute distress - Routine Respiratory Exam Present: CTA bilaterally - Routine Cardiovascular Exam Present: RRR - Routine Abdominal Exam Present: soft - Routine Extremities Exam Comments: no pedal edema. - Routine Neurological Exam Present: alert Results - Labs CBC & Chem 7: 08/31/18 06:30 08/30/18 07:30 Laboratory Results - last 24 hr 08/30/18 08/30/18 08/30/18 07:30 07:30 07:30 CBC w Diff Auto diff final WBC 14.3 H RBC 5.04 Hgb 15.6 H Hct 45.4 MCV 90.1 MCH 30.9 MCHC 34.3 RDW 12.3 Plt Count 231 MPV 9.1 Neut % (Auto) 84.1 H Lymph % (Auto) 7.5 L [place] % (Auto) 7.0 Eos % (Auto) 0.1 Baso % (Auto) 1.3 Neut # (Auto) 12.0 H Lymph # (Auto) 1.1 [place] # (Auto) 1.0 H Eos # (Auto) 0.0 Baso # (Auto) 0.2 WBC Differential . Seg Neuts % (Manual) Band Neuts % (Manual) Lymphocytes % (Manual) Monocytes % (Manual) Abs Neuts (Manual) Differential Comment . Platelet Estimate Platelet Morphology RBC Morphology Sodium 139 Potassium 4.1 D Chloride 103 Carbon Dioxide 25.2 Anion Gap 11 BUN 8 Creatinine 0.80 Estimated GFR 71 L POC Glucose Random Glucose 115 H Calcium 8.3 L D Troponin I 0.08 H C-Reactive Protein Vitamin B12 TSH CSF Volume (1) CSF Supernat Color (1) CSF Gross Blood (1) CSF Volume (2) CSF Supernat Color (2) CSF Gross Blood (2) CSF Volume (3) CSF Supernat Color (3) CSF Gross Blood (3) CSF Volume (4) CSF Supernat Color (4) CSF Gross Blood (4) CSF WBC (4) CSF RBC (4) CSF Neutrophils % CSF Lymphocytes % CSF Glucose CSF Total Protein 08/30/18 08/30/18 08/30/18 07:30 07:30 13:31 CBC w Diff WBC RBC Hgb Hct MCV MCH MCHC RDW Plt Count MPV Neut % (Auto) Lymph % (Auto) [place] % (Auto) Eos % (Auto) Baso % (Auto) Neut # (Auto) Lymph # (Auto) [place] # (Auto) Eos # (Auto) Baso # (Auto) WBC Differential Seg Neuts % (Manual) Band Neuts % (Manual) Lymphocytes % (Manual) Monocytes % (Manual) Abs Neuts (Manual) Differential Comment Platelet Estimate Platelet Morphology RBC Morphology Sodium Potassium Chloride Carbon Dioxide Anion Gap BUN Creatinine Estimated GFR POC Glucose 153 H Random Glucose Calcium Troponin I C-Reactive Protein Cancelled 0.45 H Vitamin B12 384 TSH 0.932 CSF Volume (1) CSF Supernat Color (1) CSF Gross Blood (1) CSF Volume (2) CSF Supernat Color (2) CSF Gross Blood (2) CSF Volume (3) CSF Supernat Color (3) CSF Gross Blood (3) CSF Volume (4) CSF Supernat Color (4) CSF Gross Blood (4) CSF WBC (4) CSF RBC (4) CSF Neutrophils % CSF Lymphocytes % CSF Glucose CSF Total Protein 08/30/18 08/30/18 08/30/18 14:45 17:48 17:48 CBC w Diff WBC RBC Hgb Hct MCV MCH MCHC RDW Plt Count MPV Neut % (Auto) Lymph % (Auto) [place] % (Auto) Eos % (Auto) Baso % (Auto) Neut # (Auto) Lymph # (Auto) [place] # (Auto) Eos # (Auto) Baso # (Auto) WBC Differential Seg Neuts % (Manual) Band Neuts % (Manual) Lymphocytes % (Manual) Monocytes % (Manual) Abs Neuts (Manual) Differential Comment Platelet Estimate Platelet Morphology RBC Morphology Sodium Potassium Chloride Carbon Dioxide Anion Gap BUN Creatinine Estimated GFR POC Glucose Random Glucose Calcium Troponin I 0.13 H C-Reactive Protein Vitamin B12 TSH CSF Volume (1) 3.0 CSF Supernat Color (1) Clear CSF Gross Blood (1) 0 CSF Volume (2) 2.8 CSF Supernat Color (2) Clear CSF Gross Blood (2) 0 CSF Volume (3) 2.0 CSF Supernat Color (3) Clear CSF Gross Blood (3) 0 CSF Volume (4) 2.8 CSF Supernat Color (4) Clear CSF Gross Blood (4) 0 CSF WBC (4) 0 CSF RBC (4) 2 H CSF Neutrophils % 0 CSF Lymphocytes % 0 CSF Glucose 69 CSF Total Protein 08/30/18 08/30/18 08/31/18 17:48 20:46 06:30 CBC w Diff Slide review pending WBC 25.9 H D RBC 5.54 H Hgb 17.7 H D Hct 48.7 H MCV 87.8 MCH 32.0 MCHC 36.4 H RDW 11.9 Plt Count 253 MPV 9.4 Neut % (Auto) 81.2 H Lymph % (Auto) 3.3 L [place] % (Auto) 9.0 H Eos % (Auto) 0.0 Baso % (Auto) 6.5 H Neut # (Auto) 21.0 H Lymph # (Auto) 0.9 L [place] # (Auto) 2.3 H Eos # (Auto) 0.0 Baso # (Auto) 1.7 H WBC Differential Manual diff final Seg Neuts % (Manual) 82 H Band Neuts % (Manual) 3 Lymphocytes % (Manual) 4 L Monocytes % (Manual) 11 H Abs Neuts (Manual) 22.0 H Differential Comment . Platelet Estimate Normal Platelet Morphology Normal RBC Morphology Normal Sodium Potassium Chloride Carbon Dioxide Anion Gap BUN Creatinine Estimated GFR POC Glucose Random Glucose Calcium Troponin I 0.10 H C-Reactive Protein Vitamin B12 TSH CSF Volume (1) CSF Supernat Color (1) CSF Gross Blood (1) CSF Volume (2) CSF Supernat Color (2) CSF Gross Blood (2) CSF Volume (3) CSF Supernat Color (3) CSF Gross Blood (3) CSF Volume (4) CSF Supernat Color (4) CSF Gross Blood (4) CSF WBC (4) CSF RBC (4) CSF Neutrophils % CSF Lymphocytes % CSF Glucose CSF Total Protein 54.3 H Microbiology 08/30/18 17:48 Lumbar Puncture Gram Stain - Final - Procedures LP Assessment and Plan - Plan A/P - acute encephalopathy with history of Encephalitis- now has much improved. 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 Differential diagnosis includes prior infection, trauma or vascular insult. s/p LP; HSV PCR and cultures pending. continue with Acyclovir/ Keppra was added- Neurology consult appreciated- EEG with mild Encephalopathy. -hypertension; patient is not on any home meds and says that she was trying to control the blood pressure with diet. increase Amlodipine to 10 mg daily- continue HCTZ- continue IV Vasotec prn- will monitor and adjust the regimen as needed. -leukocytosis- afebrile-will obtain the blood cultures. will monitor; repeat CBC in am. -elevated troponin with reported chest pain ( 08/30); troponin level stable- currently chest pain free- cardiology consulted. -Hypokalemia; replaced. -DVT prophylaxis with SCD's. Discharge Planning: not ready for discharge. w/u pending. consult PT.
--- NOTE | 2018-08-31 08:20 | IR ---
EXAM DATE: 08/30/2018 11:30 AM EDT AGE/SEX: 72 years / Female INDICATIONS: Patient presents with altered mental status in need of lumbar puncture for further eval uation. CLINICAL DATA: This is the patient's initial encounter. Patient reports that signs and symptoms have been present for 1 day and indicates a pain score of 7/10. MEDICAL/SURGICAL HISTORY: . Encephalitis history. . Tubal ligation. COMPARISON: No prior exams available for comparison. FLUORO TIME (min): 0.45 IMAGE SERIES: 1 ACCESS SITE: L4-5 LUMBAR PUNCTURE TIME: 17:48 hours CLOSING PRESSURE: not requested FLUID: Total volume of 12 cc of clear fluid was removed. Fluid was sent to lab for ordered studies. ; . . PROCEDURE: 1. Fluoroscopic guided lumbar puncture. The risks, benefits and alternatives to the procedure were explained and verbal and written consent w as obtained. The site was prepped in sterile fashion. Full sterile technique was used, including ca p, mask, sterile gloves and gown and a large sterile sheet. Hand hygiene and 2% chlorhexidine and/or betadine/alcohol prep was utilized per protocol for cutaneous antisepsis. The skin and subcutaneous tissues were infiltrated with local anesthetic solution. With fluoroscopic guidance the lumbar thecal sac was punctured at the level above. The fluid describ ed above was removed without difficulty. The patient tolerated the procedure well and there were no complications. CONCLUSION: 1. Uncomplicated fluoroscopically guided lumbar puncture. Clear CSF noted. Samples to the lab as req uested. Electronically signed by: Brandon Brandt MD 08/31/2018 8:19 AM EDT
[2018-08-31] MEDS: hydroCHLOROthiazide 25 MG Tablet PO SCH (08:35)
[2018-08-31] MEDS: amLODIPine 10 MG Tablet PO SCH (08:35)
[2018-08-31] MEDS: levETIRAcetam 500 MG Tablet PO SCH ×2 (08:35→22:16)
--- NOTE | 2018-08-31 10:10 | P.PNNEU ---
Subjective Subjective Comments: No cp, no dyspnea, no maldonado, no focal weakness, no vision loss Active Medications: Active Medications Acetaminophen (Tylenol) 650 mg PO Q4H PRN PRN Reason: Temp > 100.4/pain Last Admin: 08/30/18 11:04 Dose: 650 mg Al Hydroxide/Mg Hydroxide (Milk Of Magnesia Liq) 30 ml PO Q12H PRN PRN Reason: Mild Constipation Amlodipine Besylate (Norvasc) 10 mg PO DAILY [facility] Last Admin: 08/31/18 08:35 Dose: 10 mg Bisacodyl (Dulcolax Supp) 10 mg RECTAL DAILY PRN PRN Reason: SEVERE CONSITIPATION Clonidine HCl (Catapres) 0.1 mg PO Q6H PRN PRN Reason: SYS BP GREATER THAN 180 MMHG Last Admin: 08/30/18 12:29 Dose: 0.1 mg Enalaprilat (Vasotec Inj) 1.25 mg IV.PUSH Q8H PRN PRN Reason: SBP > 180 or DBP > 100 Last Admin: 08/30/18 16:26 Dose: 1.25 mg Hydrochlorothiazide (Hydrodiuril) 25 mg PO DAILY [facility] Last Admin: 08/31/18 08:35 Dose: 25 mg Sodium Chloride (Ns Inj) 1,000 mls @ 100 mls/hr IV.CONT .Q10H [facility] Last Admin: 08/31/18 00:34 Dose: 100 mls/hr Acyclovir Sodium 610 mg/ (Sodium Chloride) 112.2 mls @ 112.2 mls/hr IV.SIG Q8H [facility] Last Infusion: 08/31/18 07:51 Dose: Infused Thiamine HCl 100 mg/ Sodium (Chloride) 101 mls @ 100 mls/hr IV.SIG DAILY@2000 [facility] Last Infusion: 08/31/18 00:34 Dose: Infused Lactulose (Lactulose Liq) 30 ml PO DAILY PRN PRN Reason: SEVERE CONSITIPATION Levetiracetam (Keppra) 500 mg PO BID [facility] Last Admin: 08/31/18 08:35 Dose: 500 mg Ondansetron HCl (Zofran Inj) 4 mg IV.PUSH Q6H PRN PRN Reason: NAUSEA OR VOMITING Last Admin: 08/30/18 10:18 Dose: 4 mg Sennosides (Senokot) 17.2 mg PO Q12H PRN PRN Reason: Moderate Constipation Sodium Chloride (Ns Flush) 2 ml IV.FLUSH PRN PRN PRN Reason: FLUSH AFTER USING IV ACCESS Allergies/Adverse Reactions: Allergies Allergy/AdvReac Type Severity Reaction Status Date / Time No Known Allergies Allergy Verified 08/29/18 17:04 Review of Systems All other systems reviewed negative except as stated in HPI Physical Exam Vital signs: Vital Signs 08/30/18 12:00 08/30/18 13:23 08/30/18 16:00 Temperature 98.0 F 98.2 F Pulse Rate 67 76 Respiratory Rate 16 17 Blood Pressure 198/98 H 200/98 H 222/100 H Pulse Oximetry 100 100 08/30/18 17:31 08/30/18 17:55 08/30/18 20:00 Temperature 98.4 F 97.9 F Pulse Rate 76 72 Respiratory Rate 16 18 Blood Pressure 212/90 H 178/82 H 196/93 H Pulse Oximetry 100 98 08/30/18 20:52 08/31/18 00:00 08/31/18 04:00 Temperature 96.5 F L 97.9 F Pulse Rate 76 96 H Respiratory Rate 18 18 Blood Pressure 142/84 H 191/90 H 185/96 H Pulse Oximetry 97 08/31/18 08:00 Temperature 98.4 F Pulse Rate 92 H Respiratory Rate 20 Blood Pressure 154/93 H Pulse Oximetry 96 Intake & Output 08/30/18 08/31/18 08/31/18 18:59 06:59 18:59 Intake Total 1944.4 / 1944.4 1243.2 / 1243.2 352.2 / 352.2 Output Total 200 / 200 200 / 200 Balance 1944.4 / 1944.4 1043.2 / 1043.2 152.2 / 152.2 Weight 63 kg Intake: IV 1224.4 / 1224.4 1213.2 / 1213.2 112.2 / 112.2 NS Inj 1,000 ML @ 100 mls/hr IV 1000 / 1000 1000 / 1000 .CONT .Q10H [facility] Rx#:[id number] Zovirax Inj 610 MG In NS Inj 224.4 / 224.4 112.2 / 112.2 112.2 / 112.2 100 ML @ 112.2 mls/hr IV.SIG Q8H [facility] Rx#:[id number] Thiamine Inj 100 MG In NS Inj 101 / 101 100 ML @ 100 mls/hr IV.SIG DAILY@2000 [facility] Rx#:[id number] Oral 720 / 720 30 / 30 240 / 240 Output: Urine 200 / 200 200 / 200 Other: # Voids 4 # Bowel Movements 0 Narrative: GENERAL: in NAD, looks well SKIN: Warm and dry. HEAD: Atraumatic. Normocephalic. EYES: Pupils equal and round. No scleral icterus. ENT: No nasal bleeding or discharge. Mucous membranes pink and moist. NECK: Trachea midline. CARDIOVASCULAR: Regular rate and rhythm. RESPIRATORY: No accessory muscle use. GASTROINTESTINAL: Abdomen soft, non-tender, nondistended. MUSCULOSKELETAL: Extremities without clubbing, cyanosis, or edema. No obvious deformities. NEUROLOGICAL: Awake and alert. Oriented 2, did not know the year, remember seeing me yesterday but uncertain what my role her title is, articulate, No facial asymmetry, , eomi, VFF, No drift, Motor grossly within normal limits. Five out of 5 muscle strength in the arms and legs. Tone normal in all 4 limbs, gait not assessed secondary to fall risk PSYCHIATRIC: Appropriate mood and affect; insight and judgment normal. - Constitutional no acute distress - Routine HEENT Exam Head: Present: normocephalic Eye: Present: EOMI Objective Laboratory Results - last 24 hr 08/30/18 08/30/18 08/30/18 07:30 07:30 07:30 CBC w Diff WBC RBC Hgb Hct MCV MCH MCHC RDW Plt Count MPV Neut % (Auto) Lymph % (Auto) [place] % (Auto) Eos % (Auto) Baso % (Auto) Neut # (Auto) Lymph # (Auto) [place] # (Auto) Eos # (Auto) Baso # (Auto) WBC Differential Seg Neuts % (Manual) Band Neuts % (Manual) Lymphocytes % (Manual) Monocytes % (Manual) Abs Neuts (Manual) Differential Comment Platelet Estimate Platelet Morphology RBC Morphology POC Glucose Troponin I 0.08 H C-Reactive Protein Cancelled 0.45 H Vitamin B12 384 TSH 0.932 CSF Volume (1) CSF Supernat Color (1) CSF Gross Blood (1) CSF Volume (2) CSF Supernat Color (2) CSF Gross Blood (2) CSF Volume (3) CSF Supernat Color (3) CSF Gross Blood (3) CSF Volume (4) CSF Supernat Color (4) CSF Gross Blood (4) CSF WBC (4) CSF RBC (4) CSF Neutrophils % CSF Lymphocytes % CSF Glucose CSF Total Protein 08/30/18 08/30/18 08/30/18 13:31 14:45 17:48 CBC w Diff WBC RBC Hgb Hct MCV MCH MCHC RDW Plt Count MPV Neut % (Auto) Lymph % (Auto) [place] % (Auto) Eos % (Auto) Baso % (Auto) Neut # (Auto) Lymph # (Auto) [place] # (Auto) Eos # (Auto) Baso # (Auto) WBC Differential Seg Neuts % (Manual) Band Neuts % (Manual) Lymphocytes % (Manual) Monocytes % (Manual) Abs Neuts (Manual) Differential Comment Platelet Estimate Platelet Morphology RBC Morphology POC Glucose 153 H Troponin I 0.13 H C-Reactive Protein Vitamin B12 TSH CSF Volume (1) 3.0 CSF Supernat Color (1) Clear CSF Gross Blood (1) 0 CSF Volume (2) 2.8 CSF Supernat Color (2) Clear CSF Gross Blood (2) 0 CSF Volume (3) 2.0 CSF Supernat Color (3) Clear CSF Gross Blood (3) 0 CSF Volume (4) 2.8 CSF Supernat Color (4) Clear CSF Gross Blood (4) 0 CSF WBC (4) 0 CSF RBC (4) 2 H CSF Neutrophils % 0 CSF Lymphocytes % 0 CSF Glucose CSF Total Protein 08/30/18 08/30/18 08/30/18 17:48 17:48 20:46 CBC w Diff WBC RBC Hgb Hct MCV MCH MCHC RDW Plt Count MPV Neut % (Auto) Lymph % (Auto) [place] % (Auto) Eos % (Auto) Baso % (Auto) Neut # (Auto) Lymph # (Auto) [place] # (Auto) Eos # (Auto) Baso # (Auto) WBC Differential Seg Neuts % (Manual) Band Neuts % (Manual) Lymphocytes % (Manual) Monocytes % (Manual) Abs Neuts (Manual) Differential Comment Platelet Estimate Platelet Morphology RBC Morphology POC Glucose Troponin I 0.10 H C-Reactive Protein Vitamin B12 TSH CSF Volume (1) CSF Supernat Color (1) CSF Gross Blood (1) CSF Volume (2) CSF Supernat Color (2) CSF Gross Blood (2) CSF Volume (3) CSF Supernat Color (3) CSF Gross Blood (3) CSF Volume (4) CSF Supernat Color (4) CSF Gross Blood (4) CSF WBC (4) CSF RBC (4) CSF Neutrophils % CSF Lymphocytes % CSF Glucose 69 CSF Total Protein 54.3 H 08/31/18 06:30 CBC w Diff Slide review pending WBC 25.9 H D RBC 5.54 H Hgb 17.7 H D Hct 48.7 H MCV 87.8 MCH 32.0 MCHC 36.4 H RDW 11.9 Plt Count 253 MPV 9.4 Neut % (Auto) 81.2 H Lymph % (Auto) 3.3 L [place] % (Auto) 9.0 H Eos % (Auto) 0.0 Baso % (Auto) 6.5 H Neut # (Auto) 21.0 H Lymph # (Auto) 0.9 L [place] # (Auto) 2.3 H Eos # (Auto) 0.0 Baso # (Auto) 1.7 H WBC Differential Manual diff final Seg Neuts % (Manual) 82 H Band Neuts % (Manual) 3 Lymphocytes % (Manual) 4 L Monocytes % (Manual) 11 H Abs Neuts (Manual) 22.0 H Differential Comment . Platelet Estimate Normal Platelet Morphology Normal RBC Morphology Normal POC Glucose Troponin I C-Reactive Protein Vitamin B12 TSH CSF Volume (1) CSF Supernat Color (1) CSF Gross Blood (1) CSF Volume (2) CSF Supernat Color (2) CSF Gross Blood (2) CSF Volume (3) CSF Supernat Color (3) CSF Gross Blood (3) CSF Volume (4) CSF Supernat Color (4) CSF Gross Blood (4) CSF WBC (4) CSF RBC (4) CSF Neutrophils % CSF Lymphocytes % CSF Glucose CSF Total Protein Microbiology 08/30/18 17:48 Gram Stain - Final Lumbar Puncture Review/Management - Diagnosis (1) Hypertensive encephalopathy Code(s): I67.4 - Hypertensive encephalopathy Status: Acute Current Visit: Yes (2) History of herpes encephalitis Code(s): Z86.19 - Personal history of other infectious and parasitic diseases Status: Acute Current Visit: Yes (3) Change in mental status Code(s): R41.82 - Altered mental status, unspecified Status: Acute Current Visit: Yes (4) Leukocytosis Code(s): D72.829 - Elevated white blood cell count, unspecified Status: Acute Current Visit: Yes - Review/Management Plan: Etiologies for recurrent confusion would include hypertensive encephalopathy, versus partial seizures secondary to temporal lobe injury from encephalitis versus 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 At the least Keppra it appears she is not on any seizure medication at present EEG; no active seizures however paroxysmal prominent sharply contoured delta activity Resume Keppra MRI brain; old scar tissue in the temporal lobe no acute lesion Recommendation CSF studies no leukocytosis, mildly elevated protein level however. Gram stain negative; await herpes PCR. If negative discharge planning IV acyclovir until PCR returns Blood pressure control Discussed with patient, and spouse at bedside Further outpatient cognitive testing No driving (3) Change in mental status Qualifiers: Altered mental status type: disorientation Qualified Code(s): R41.0 - Disorientation, unspecified (4) Leukocytosis Qualifiers: Leukocytosis type: unspecified Qualified Code(s): D72.829 - Elevated white blood cell count, unspecified
[2018-08-31] MEDS ORDERED: Regadenoson Inj 0.4 MG/5 ML Syringe IV.PUSH ONE (14:00)
--- NOTE | 2018-08-31 14:47 | NM ---
EXAM DATE: 08/31/2018 12:54 PM EDT AGE/SEX: 72 years / Female INDICATIONS:Angina. . CLINICAL DATA: This is the patient's initial encounter. Patient reports that signs and symptoms have been present for 1 day and indicates a pain score of 6/10. MEDICAL/SURGICAL HISTORY: . Encephalitis. Tubal ligation. COMPARISON: No prior exams available for comparison. DOSE: 8.3 mCi Tc 99m Myoview at rest 25.6 mCi [id number] at stress 0.4 mg Lexiscan STRESS SYMPTOMS: None. EJECTION FRACTION: 70 % TECHNIQUE: The patient underwent pharmacologic stress with infusion of prescribed dose. Continuous ECG tracing was monitored during stress. Gated SPECT imaging was performed after stress and conventi onal SPECT imaging was performed at rest. The examination was performed on a SPECT/CT scanner, both attenuation and non-corrected datasets were reviewed. FINDINGS: Distribution: The maximum perfused segment at stress is in the anterior wall. Perfusion Study: The pattern of perfusion at stress is within normal limits. Gated Study: There are intact wall motion and wall thickening. There appears to be some focal dyskin esia involving the anterior apical wall.. The ejection fraction is calculated at 70%. RISK CATEGORY: Low (<1% Annual Motality Rate) CONCLUSION: 1. No evidence to suggest ischemic myocardial changes. 2. Focal dyskinesia involving the anteroapical wall. Electronically signed by: Ga Wong MD 08/31/2018 2:45 PM EDT
[2018-08-31] MEDS: Thiamine Inj 100 MG in Sodium Chlor 0.9% Inj 100 ML IV.SIG SCH (22:20)
[2018-09-01] MEDS: SODIUM CHLOR 0.9% IV.SIG SCH ×3 (06:06→21:57)
[2018-09-01] MEDS: ACYCLOVIR IV.SIG SCH ×3 (06:06→21:57)
[2018-09-01 06:28] LABS: Baso # (Auto) 0.3 th/mm3 (0.0-0.2); Baso % (Auto) 1.4 % (0.0-2.0); Lymph # (Auto) 0.9 th/mm3 (1.0-4.8); Lymph % (Auto) 3.7 % (9.0-44.0); Mean Corpuscular HGB Conc 34.1 % (32.0-36.0); Mean Corpuscular Hemoglobin 31.1 pg (27.0-34.0); Mean Corpuscular Volume 91.3 fL (80.0-100.0); Mean Platelet Volume 8.6 fL (7.0-11.0); Mono # (Auto) 1.7 th/mm3 (0.0-0.9); Mono % (Auto) 7.4 % (0.0-8.0); Neut # (Auto) 20.2 th/mm3 (1.8-7.7); Neut % (Auto) 87.5 % (16.0-70.0); Platelet Count 190 th/mm3 (150-450); Red Blood Count 4.82 mil/mm3 (4.00-5.30); Red Cell Distribution Width 11.8 % (11.6-17.2); White Blood Count 23.1 th/mm3 (4.0-11.0)
[2018-09-01 07:03] LABS: Calcium 8.1 mg/dL (8.5-10.1); Carbon Dioxide 25.5 meq/L (21.0-32.0)
[2018-09-01] MEDS: Sod Chloride 0.9% Inj 1,000 ML IV.CONT SCH ×3 (07:03→15:21)
[2018-09-01 07:07] LABS: Potassium 2.9 meq/L (3.5-5.1)
[2018-09-01] MEDS: levETIRAcetam 500 MG Tablet PO SCH ×2 (08:30→20:36)
[2018-09-01] MEDS: amLODIPine 10 MG Tablet PO SCH (08:30)
--- NOTE | 2018-09-01 09:52 | P.PNIM ---
Subjective Interval history: f/u; possible encephalitis in no acute distress. afebrile. no chest pain or sob. no headache or nausea. BP trend noted. Physical Exam Vital signs: Vital Signs 08/31/18 12:00 08/31/18 16:00 08/31/18 20:00 Temperature 99.2 F 97.3 F L 99.2 F Pulse Rate 95 H 100 H 108 H Respiratory Rate 20 22 18 Blood Pressure 168/93 H 156/75 H 133/78 Pulse Oximetry 98 97 97 09/01/18 00:00 09/01/18 04:00 09/01/18 09:07 Temperature 97.6 F 97.5 F L 99.4 F Pulse Rate 80 76 114 H Respiratory Rate 18 18 16 Blood Pressure 134/67 129/67 132/68 Pulse Oximetry 95 93 L 95 Intake & Output 08/31/18 09/01/18 09/01/18 18:59 06:59 18:59 Intake Total 1704.4 / 1704.4 1563.2 / 1563.2 112.2 / 112.2 Output Total 200 / 200 500 / 500 Balance 1504.4 / 1504.4 1063.2 / 1063.2 112.2 / 112.2 Weight 122.2 kg Intake: IV 1224.4 / 1224.4 1213.2 / 1213.2 112.2 / 112.2 NS Inj 1,000 ML @ 100 mls/hr IV 1000 / 1000 1000 / 1000 .CONT .Q10H [facility] Rx#:[id number] Zovirax Inj 610 MG In NS Inj 224.4 / 224.4 112.2 / 112.2 112.2 / 112.2 100 ML @ 112.2 mls/hr IV.SIG Q8H [facility] Rx#:[id number] Thiamine Inj 100 MG In NS Inj 101 / 101 100 ML @ 100 mls/hr IV.SIG DAILY@2000 [facility] Rx#:[id number] Oral 480 / 480 350 / 350 Tube Feeding 0 / 0 Output: Urine 200 / 200 500 / 500 - Constitutional no acute distress - Routine Respiratory Exam Present: CTA bilaterally - Routine Cardiovascular Exam Present: RRR - Routine Abdominal Exam Present: soft - Routine Extremities Exam Comments: no pedal edema. - Routine Neurological Exam Present: alert, oriented X3 Results - Labs CBC & Chem 7: 09/01/18 06:05 09/01/18 06:05 Laboratory Results - last 24 hr 09/01/18 09/01/18 06:05 06:05 CBC w Diff Slide review pending WBC 23.1 H RBC 4.82 Hgb 15.0 D Hct 44.0 MCV 91.3 D MCH 31.1 MCHC 34.1 RDW 11.8 Plt Count 190 MPV 8.6 Neut % (Auto) 87.5 H Lymph % (Auto) 3.7 L [place] % (Auto) 7.4 Eos % (Auto) 0.0 Baso % (Auto) 1.4 Neut # (Auto) 20.2 H Lymph # (Auto) 0.9 L [place] # (Auto) 1.7 H Eos # (Auto) 0.0 Baso # (Auto) 0.3 H WBC Differential . Diff Scan Auto diff confirmed Differential Comment . Sodium 132 L Potassium 2.9 L* D Chloride 97 L Carbon Dioxide 25.5 Anion Gap 10 BUN 20 H Creatinine 0.87 Estimated GFR 64 L Random Glucose 103 Calcium 8.1 L Microbiology 08/30/18 17:48 Lumbar Puncture Gram Stain - Final 08/30/18 17:48 Lumbar Puncture CSF Culture - Preliminary No growth in 24 hours - Imaging Impressions Myocardial Perfusion Scan Nuc Med 08/31/18 00:00 CONCLUSION: 1. No evidence to suggest ischemic myocardial changes. 2. Focal dyskinesia involving the anteroapical wall. - Procedures LP Assessment and Plan - Plan A/P - acute encephalopathy with history of Encephalitis- now has much improved. 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 Differential diagnosis includes prior infection, trauma or vascular insult. s/p LP; HSV PCR and cultures negative so far. continue with Acyclovir/ Keppra was added- Neurology consult appreciated- EEG with mild Encephalopathy. -hypertension; patient is not on any home meds and says that she was trying to control the blood pressure with diet. BP has improved; increase Amlodipine to 10 mg daily- continue HCTZ- continue IV Vasotec prn- will monitor and adjust the regimen as needed. -leukocytosis- persistent but afebrile-blood cultures pending- consult ID. -elevated troponin with reported chest pain ( 08/30); troponin level stable- currently chest pain free- cardiology consulted. previously d/w ; stress test with no ischemia but with anteroapical wall focal dyskinesia; will check echo. -Hypokalemia; will replace and monitor. -DVT prophylaxis with SCD's. Discharge Planning: not ready for discharge. w/u pending. consulted PT.
[2018-09-01] MEDS: hydroCHLOROthiazide 25 MG Tablet PO SCH (10:52)
--- NOTE | 2018-09-01 11:20 | ECHRPT ---
Indication: Chest Pain CONCLUSIONS Normal left ventricular size. Wall thickness is normal. The left ventricular systolic function is normal with an estimated ejection fraction in the range of 60-65%. No regional wall motion abnormalities are present. There is trace tricuspid valve regurgitation. The estimated pulmonary arterial pressure is 33 mmHg. BP: / HR: Rhythm: MEASUREMENTS (Male / Female) Normal Values Technical Quality:Fair 2D ECHO LV Diastolic Diameter PLAX 3.5 cm 4.2 - 5.9 / 3.9 - 5.3 cm LV Systolic Diameter PLAX 2.2 cm IVS Diastolic Thickness 1.0 cm 0.6 - 1.0 / 0.6 - 0.9 cm LVPW Diastolic Thickness 1.0 cm 0.6 - 1.0 / 0.6 - 0.9 cm LV Relative Wall Thickness 0.6 RV Internal Dim ED PLAX 2.8 cm LVOT Diameter 1.8 cm Aortic Root Diameter 3.2 cm LA Systolic Diameter LX 3.0 cm 3.0 - 4.0 / 2.7 - 3.8 cm DOPPLER AV Peak Velocity 141.0 cm/s AV Peak Gradient 8.0 mmHg LVOT Peak Velocity 119.0 cm/s LVOT Peak Gradient 5.7 mmHg AV Area Cont Eq pk 2.1 cm Mitral E Point Velocity 75.4 cm/s Mitral A Point Velocity 112.0 cm/s Mitral E to A Ratio 0.7 LV E' Lateral Velocity 11.3 cm/s Mitral E to LV E' Lateral Ratio 6.7 LV E' Septal Velocity 8.0 cm/s Mitral E to LV E' Septal Ratio 9.4 TR Peak Velocity 240.0 cm/s TR Peak Gradient 23.0 mmHg Right Atrial Pressure 10.0 mmHg Pulmonary Artery Systolic Pressu 33.0 mmHg Right Ventricular Systolic Press 33.0 mmHg PV Peak Velocity 99.1 cm/s PV Peak Gradient 3.9 mmHg FINDINGS LEFT VENTRICLE Normal left ventricular size. Wall thickness is normal. The left ventricular systolic function is normal with an estimated ejection fraction in the range of 60-65%. No regional wall motion abnormalities are present. RIGHT VENTRICLE Normal right ventricular size and systolic function. LEFT ATRIUM The left atrial size is normal. RIGHT ATRIUM The right atrial size is normal. ATRIAL SEPTUM Normal atrial septal thickness without atrial level shunting by limited color doppler interrogation. AORTA The aortic root and proximal ascending aorta are normal in size on limited imaging. MITRAL VALVE Structurally normal mitral valve. No mitral valve stenosis or regurgitation. AORTIC VALVE Trileaflet aortic valve. No aortic valve stenosis or regurgitation. TRICUSPID VALVE There is trace tricuspid valve regurgitation. The estimated pulmonary arterial pressure is 33 mmHg. PULMONARY VALVE No pulmonary valve regurgitation or stenosis. VESSELS The inferior vena cava is normal in size. PERICARDIUM No pericardial effusion. Sergio Whittaker MD (Electronically Signed) Final Date:01 September 2018 11:19
[2018-09-01] MEDS ORDERED: Regadenoson Inj 0.4 MG/5 ML Syringe IV.PUSH ONE (15:50)
--- NOTE | 2018-09-01 16:30 | MB ---
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 HISTORY OF PRESENT ILLNESS: This is a 72-year-old white female who was brought to the emergency department on 08/29/2018 with altered mental status. The patient was noted to have some problems with mental status deterioration approximately 2 days prior and this continued and she was brought to the emergency department for evaluation. 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 Lumbar puncture was performed. The lumbar puncture revealed 0 white cells and 2 red cells, glucose of 69, protein mildly elevated at 54. The patient was started on acyclovir. Studies on the CSF included herpes PCR, which has returned positive for herpes 1. The patient was treated for herpes encephalitis 2 years ago. Currently, she is awake and alert and answers all my questions without difficulty. She recalls family member's names and other events without difficulties. She has no headache, nausea, vomiting. She states that her appetite for the food here is not good. She has no visual blurring or diplopia. She denies all other symptomatology except for feeling slightly weak. PAST MEDICAL HISTORY: Encephalitis. PAST SURGICAL HISTORY: Tubal ligation. ALLERGIES: NO KNOWN DRUG ALLERGIES. MEDICATIONS: 1. IV acyclovir 2. Norvasc. 3. Catapres. 4. Vasotec. 5. Hydrochlorothiazide. 6. Keppra. 7. Potassium. 8. Thiamine. SOCIAL HISTORY: No tobacco, never smoked. No alcohol. No illicit drugs. FAMILY HISTORY: Noncontributory. REVIEW OF SYSTEMS: All systems have been reviewed and are negative. PHYSICAL EXAMINATION: GENERAL: This is a well-developed, slender female who is in no acute distress. She is awake and alert and oriented. VITAL SIGNS: Temperature 96.3, BP 148/72, respirations 18, heart rate 93. HEENT: Head atraumatic. Extraocular movements grossly intact. Pupils are reactive to light. The pupils are constricted. No icterus. No conjunctival erythema. Oropharynx moist mucosa without lesions. NECK: Supple. No adenopathy. No swelling. LUNGS: Clear to auscultation. Heart, regular rate and rhythm. No murmurs, rubs or gallops. ABDOMEN: Bowel sounds present. Soft, nontender. No masses palpable. RECTAL: Not performed. EXTREMITIES: No clubbing, cyanosis or edema. SKIN: No rash. NEUROLOGIC: Nonfocal. PSYCHIATRIC: The patient pleasant, calm and cooperative. LABORATORY DATA: WBC 23.1, platelets 190. Hemoglobin 15.0, 87% neutrophils. Creatinine 0.87, BUN 20, sodium 132, potassium 2.9. IMPRESSIONS: 1. 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 She did not have any sequelae from the prior episode which was treated. 2. Leukocytosis. Questionable etiology. Probably this is reactive. No symptomatology suggesting another source of infection. RECOMMENDATIONS: 1. Continue acyclovir for a total of 21 days. After that, the patient should be given maintenance treatment with valacyclovir p.o. She should be referred to follow with Neurology or Infectious Disease after discharge from the hospital. 2. Monitor the white blood cell count and observe for clinical signs of another source of infection such as a UTI, but it would not need additional antibiotic treatment at this time. 3. Monitor blood cultures, which were obtained yesterday. The patient appears to be improved significantly. A determination will have to be made about the antibiotics, whether to administer antibiotics at a nursing facility or at home. We will need to monitor renal function while on the IV acyclovir. Thank you for this consultation. The patient's progress will be monitored along with you and further recommendations will be given on followup if necessary. MD SHRUTHI Dawson/hermila , 03:48 PM , 04:03 PM
[2018-09-01] MEDS: Thiamine Inj 100 MG in Sodium Chlor 0.9% Inj 100 ML IV.SIG SCH (20:20)
[2018-09-02] MEDS: Sod Chloride 0.9% Inj 1,000 ML IV.CONT SCH ×2 (03:26→17:00)
[2018-09-02] MEDS: SODIUM CHLOR 0.9% IV.SIG SCH ×3 (04:52→22:15)
[2018-09-02] MEDS: ACYCLOVIR IV.SIG SCH ×3 (04:52→22:15)
[2018-09-02 06:32] LABS: Baso # (Auto) 0.3 th/mm3 (0.0-0.2); Baso % (Auto) 1.9 % (0.0-2.0); Eos % (Auto) 0.2 % (0.0-4.0); Hematocrit 42.3 % (35.0-46.0); Hemoglobin 14.3 gm/dL (11.6-15.3); Lymph # (Auto) 1.2 th/mm3 (1.0-4.8); Lymph % (Auto) 7.7 % (9.0-44.0); Mean Corpuscular HGB Conc 33.8 % (32.0-36.0); Mean Corpuscular Hemoglobin 30.8 pg (27.0-34.0); Mean Platelet Volume 8.4 fL (7.0-11.0); Mono # (Auto) 1.2 th/mm3 (0.0-0.9); Mono % (Auto) 7.8 % (0.0-8.0); Neut # (Auto) 12.5 th/mm3 (1.8-7.7); Neut % (Auto) 82.4 % (16.0-70.0); Platelet Count 217 th/mm3 (150-450); Red Blood Count 4.64 mil/mm3 (4.00-5.30); Red Cell Distribution Width 11.8 % (11.6-17.2); White Blood Count 15.2 th/mm3 (4.0-11.0)
[2018-09-02 07:06] LABS: Calcium 8.2 mg/dL (8.5-10.1); Carbon Dioxide 26.4 meq/L (21.0-32.0); Potassium 3.7 meq/L (3.5-5.1)
[2018-09-02] MEDS: amLODIPine 10 MG Tablet PO SCH (09:57)
[2018-09-02] MEDS: hydroCHLOROthiazide 25 MG Tablet PO SCH (09:57)
[2018-09-02] MEDS: levETIRAcetam 500 MG Tablet PO SCH ×2 (09:57→21:11)
--- NOTE | 2018-09-02 10:53 | P.PNIM ---
Subjective Interval history: f/u; viral encephalitis in no acute distress. no headache. afebrile. Physical Exam Vital signs: Vital Signs 09/01/18 12:09 09/01/18 12:41 09/01/18 15:54 Temperature 96.3 F L Pulse Rate 92 H 93 H 97 H Respiratory Rate 18 Blood Pressure 148/72 H Pulse Oximetry 97 09/01/18 18:15 09/01/18 20:00 09/02/18 00:00 Temperature 98.3 F 99.0 F 96.1 F L Pulse Rate 112 H 96 H 100 H Respiratory Rate 16 16 16 Blood Pressure 149/97 H 141/82 H 142/72 H Pulse Oximetry 96 97 97 09/02/18 00:10 09/02/18 04:00 09/02/18 08:00 Temperature 97.1 F L 98.2 F Pulse Rate 95 H 99 H 100 H Respiratory Rate 16 16 Blood Pressure 145/73 H 168/77 H Pulse Oximetry 97 95 Intake & Output 09/01/18 09/02/18 09/02/18 18:59 06:59 18:59 Intake Total 724.4 / 724.4 1925.4 / 1925.4 Balance 724.4 / 724.4 1925.4 / 1925.4 Weight 122.2 kg Intake: IV 224.4 / 224.4 1325.4 / 1325.4 NS Inj 1,000 ML @ 100 mls/hr IV 1000 / 1000 .CONT .Q10H [facility] Rx#:[id number] Zovirax Inj 610 MG In NS Inj 224.4 / 224.4 224.4 / 224.4 100 ML @ 112.2 mls/hr IV.SIG Q8H [facility] Rx#:[id number] Thiamine Inj 100 MG In NS Inj 101 / 101 100 ML @ 100 mls/hr IV.SIG DAILY@2000 [facility] Rx#:[id number] Oral 500 / 500 600 / 600 Other: # Voids 2 2 - Constitutional no acute distress - Routine Respiratory Exam Present: CTA bilaterally - Routine Cardiovascular Exam Present: RRR - Routine Abdominal Exam Present: soft - Routine Extremities Exam Comments: no pedal edema. - Routine Neurological Exam Present: alert, oriented X3 Results - Labs CBC & Chem 7: 09/02/18 06:10 09/02/18 06:10 Laboratory Results - last 24 hr 08/30/18 09/02/18 09/02/18 17:48 06:10 06:10 CBC w Diff Slide review pending WBC 15.2 H RBC 4.64 Hgb 14.3 Hct 42.3 MCV 91.0 MCH 30.8 MCHC 33.8 RDW 11.8 Plt Count 217 MPV 8.4 Neut % (Auto) 82.4 H Lymph % (Auto) 7.7 L [place] % (Auto) 7.8 Eos % (Auto) 0.2 Baso % (Auto) 1.9 Neut # (Auto) 12.5 H Lymph # (Auto) 1.2 [place] # (Auto) 1.2 H Eos # (Auto) 0.0 Baso # (Auto) 0.3 H WBC Differential . Diff Scan Auto diff confirmed Differential Comment . Sodium 137 Potassium 3.7 D Chloride 101 Carbon Dioxide 26.4 Anion Gap 10 BUN 15 Creatinine 0.83 Estimated GFR 68 L Random Glucose 85 Calcium 8.2 L CSF Herpes I DNA (PCR) Positive CSF Herpes II DNA (PCR) Negative Microbiology 08/30/18 17:48 Lumbar Puncture Gram Stain - Final 08/30/18 17:48 Lumbar Puncture CSF Culture - Final No growth in 72 hours 08/31/18 11:30 Blood - Peripheral Aerobic Blood Culture - Preliminary No growth in 1 day 08/31/18 11:30 Blood - Peripheral Anaerobic Blood Culture - Preliminary No growth in 1 day 08/31/18 11:20 Blood - Peripheral Aerobic Blood Culture - Preliminary No growth in 1 day 08/31/18 11:20 Blood - Peripheral Anaerobic Blood Culture - Preliminary No growth in 1 day - Procedures LP Assessment and Plan - Plan A/P - acute encephalopathy due to viral Encephalitis- now has much improved. 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 Differential diagnosis includes prior infection, trauma or vascular insult. s/p LP; HSV PCR positive- cultures negative so far. continue with Acyclovir/ Keppra was added- Neurology consult appreciated- EEG with mild Encephalopathy. ID consult appreciated. -hypertension; patient is not on any home meds and says that she was trying to control the blood pressure with diet. BP has improved; continue Amlodipine 10 mg daily- continue HCTZ- continue IV Vasotec prn- will monitor and adjust the regimen as needed. -leukocytosis-improving and afebrile-blood cultures negative so far- consulted ID as noted above. -elevated troponin with reported chest pain ( 08/30); troponin level stable- currently chest pain free- stress test with no ischemia but with anteroapical wall focal dyskinesia. echo with EF 60% and no regional wall motion abnormalities- previously d/w and no further w/u at this time. -Hypokalemia; replaced. -DVT prophylaxis with SCD's. Discharge Planning: dc home within the next 24-48 hrs if stable and cleared by ID.
--- NOTE | 2018-09-02 16:03 | P.DCO ---
- Physical Therapy Order: Evaluate and treat - Home Health Nursing Order: Medical education, Signs/symptoms of disease process, Medication education-adverse effect, Nursing assessment with vital signs, IV medication administration - Case Management Consult Yes - Certification I have seen patient Marga Rosenbaum on 09/02/18. My clinical findings support the need for the requested home health care services because: Limited mobility due to disease progression I certify that my clinical findings support that this patient is homebound because: Unsteady gait/balance
--- NOTE | 2018-09-02 17:33 | P.PNID ---
Subjective Remarks: Patient feels okay. Says she is walking okay. Clear mentation. No nausea. Denies TORRES. Afebrile. CSF HSV 1 positive. This is a 72-year-old white female who was brought to the emergency department on 08/29/2018 with altered mental status. The patient was noted to have some problems with mental status deterioration approximately 2 days prior and this continued and she was brought to the emergency department for evaluation. 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 Lumbar puncture was performed. The lumbar puncture revealed 0 white cells and 2 red cells, glucose of 69, protein mildly elevated at 54. The patient was started on acyclovir. The patient was treated for herpes encephalitis 2 years ago. Past Medical History: PAST MEDICAL HISTORY: Encephalitis. PAST SURGICAL HISTORY: Tubal ligation. Allergies/Adverse Reactions: Allergies No Known Allergies Allergy (Verified 08/29/18 17:04) Objective Vital Signs 09/01/18 18:15 09/01/18 20:00 09/02/18 00:00 Temperature 98.3 F 99.0 F 96.1 F L Pulse Rate 112 H 96 H 100 H Respiratory Rate 16 16 16 Blood Pressure 149/97 H 141/82 H 142/72 H Pulse Oximetry 96 97 97 09/02/18 00:10 09/02/18 04:00 09/02/18 08:00 Temperature 97.1 F L 98.2 F Pulse Rate 95 H 99 H 100 H Respiratory Rate 16 16 Blood Pressure 145/73 H 168/77 H Pulse Oximetry 97 95 09/02/18 12:00 09/02/18 16:00 Temperature 98.0 F 98.6 F Pulse Rate 107 H 106 H Respiratory Rate 16 16 Blood Pressure 154/74 H 144/73 H Pulse Oximetry 96 96 Intake & Output 09/01/18 09/02/18 09/02/18 18:59 06:59 18:59 Intake Total 724.4 / 724.4 1925.4 / 1925.4 1000 / 1000 Balance 724.4 / 724.4 1925.4 / 1925.4 1000 / 1000 Weight 122.2 kg Intake: IV 224.4 / 224.4 1325.4 / 1325.4 1000 / 1000 NS Inj 1,000 ML @ 100 mls/hr IV 1000 / 1000 1000 / 1000 .CONT .Q10H [facility] Rx#:[id number] Zovirax Inj 610 MG In NS Inj 224.4 / 224.4 224.4 / 224.4 100 ML @ 112.2 mls/hr IV.SIG Q8H [facility] Rx#:[id number] Thiamine Inj 100 MG In NS Inj 101 / 101 100 ML @ 100 mls/hr IV.SIG DAILY@2000 [facility] Rx#:[id number] Oral 500 / 500 600 / 600 Other: # Voids 2 2 08/31/18 11:30 Blood - Peripheral Aerobic Blood Culture - Preliminary No growth in 2 days 08/31/18 11:30 Blood - Peripheral Anaerobic Blood Culture - Preliminary No growth in 2 days 08/31/18 11:20 Blood - Peripheral Aerobic Blood Culture - Preliminary No growth in 2 days 08/31/18 11:20 Blood - Peripheral Anaerobic Blood Culture - Preliminary No growth in 2 days 08/30/18 17:48 Lumbar Puncture Gram Stain - Final 08/30/18 17:48 Lumbar Puncture CSF Culture - Final No growth in 72 hours Lab - Hematology Results 09/01/18 09/02/18 06:05 06:10 CBC w Diff Slide review pending Slide review pending WBC 23.1 H 15.2 H RBC 4.82 4.64 Hgb 15.0 D 14.3 Hct 44.0 42.3 MCV 91.3 D 91.0 MCH 31.1 30.8 MCHC 34.1 33.8 RDW 11.8 11.8 Plt Count 190 217 MPV 8.6 8.4 Neut % (Auto) 87.5 H 82.4 H Lymph % (Auto) 3.7 L 7.7 L [place] % (Auto) 7.4 7.8 Eos % (Auto) 0.0 0.2 Baso % (Auto) 1.4 1.9 Neut # (Auto) 20.2 H 12.5 H Lymph # (Auto) 0.9 L 1.2 [place] # (Auto) 1.7 H 1.2 H Eos # (Auto) 0.0 0.0 Baso # (Auto) 0.3 H 0.3 H WBC Differential . . Diff Scan Auto diff confirmed Auto diff confirmed Differential Comment . . Lab - Chemistry Results 09/01/18 09/02/18 06:05 06:10 Sodium 132 L 137 Potassium 2.9 L* D 3.7 D Chloride 97 L 101 Carbon Dioxide 25.5 26.4 Anion Gap 10 10 BUN 20 H 15 Creatinine 0.87 0.83 Estimated GFR 64 L 68 L Random Glucose 103 85 Calcium 8.1 L 8.2 L Imaging: ITS Impressions Head MRI 08/29/18 00:00 CONCLUSION: 1. 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 Differential diagnosis includes prior infection, trauma or vascular insult. 2. No recent infarct identified. Head CT 08/29/18 17:04 CONCLUSION: 1. No acute intracranial abnormalities. . Lumbar Puncture Fluoroscopy 08/30/18 11:30 CONCLUSION: 1. Uncomplicated fluoroscopically guided lumbar puncture. Clear CSF noted. Samples to the lab as requested. Myocardial Perfusion Scan Nuc Med 08/31/18 00:00 CONCLUSION: 1. No evidence to suggest ischemic myocardial changes. 2. Focal dyskinesia involving the anteroapical wall. Physical Exam: PHYSICAL EXAMINATION: GENERAL: No acute distress. HEENT: Head atraumatic. Extraocular movements grossly intact. Pupils are reactive to light. The pupils are constricted. No icterus. No conjunctival erythema. Oropharynx moist mucosa without lesions. NECK: Supple. No adenopathy. No swelling. LUNGS: Clear to auscultation. Heart, regular rate and rhythm. No murmurs, rubs or gallops. ABDOMEN: Bowel sounds present. Soft, nontender. EXTREMITIES: No clubbing, cyanosis or edema. SKIN: No rash. NEUROLOGIC: Nonfocal. PSYCHIATRIC: Pleasant, calm and cooperative. Assessment and Plan - Plan IMPRESSIONS: 1. 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 She did not have any sequelae from the prior episode which was treated. 2. Leukocytosis. Questionable etiology. Probably this is reactive. WBC improving. RECOMMENDATIONS: Continue acyclovir for a total of 21 days. After that, the patient should probably be given maintenance treatment with anti viral. She should be referred to follow with Neurology or Infectious Disease after discharge from the hospital. Arrange for PIC line and outpatient antibiotics if possible. Orders will be written to initiate process of outpatient treatment. Discussed with Dr Spaulding.
--- NOTE | 2018-09-02 17:43 | P.DCO ---
Post Hospital Infusion Therapy - Infusion Therapy Location of Infusion Therapy: Home Health Care IV Infusion Order - Patient Information Patient Weight: 122.2 kg - Additional Information Additional Medications: Acyclovir 610mg IV Q 8 hrs until 09/19/2018 Venous Access: PICC Line Additional Instructions: [x] Peripheral flush and dressing changes per protocol [x] Implanted port and central gas line servicer: * Implanted port: 10 ml Normal Saline followed by 5 ml Heparin 100 units/ml Heparin flush after each use and monthly to maintain. [] May leave port accessed during therapy. [] May leave peripheral site accessed for duration of therapy. [x] If patient has SOB or respiratory distress, check oxygen saturation. If less than 90% or clinical signs of respiratory distress, administer oxygen at 2 L/min. via nasal cannula and notify physician. [x] Anaphylaxis/Reaction orders: * Stop infusion. * Keep IV line open with saline flush. * Notify physician. * Monitor vital signs every 15 minutes until symptoms resolve. * Check Oxygen saturation; Oxygen at 2 L/min. via nasal cannula if less than 90% or clinical signs of respiratory distress. * Administer diphenhydramine (Benadryl) 25 mg IV STAT, (unless patient has received as pre-med). May repeat once, if necessary. * Solu-Cortef 250 mg IVP over 30-60 seconds, use 100 mg vials for each dissolution. * Epinephrine (1mg/1 ml) 0.3 mg subcutaneously or IVP now with any signs of respiratory distress. * Check with physician for new additional pre-med orders if patient is re- challenged or re-treated. [x] May remove PICC line when treatment complete, after confirming with Physician. [x] If the patient is admitted to the hospital, the ED, or transferred via [facility] , complete transfer form including medication reconciliation order sheet. Additional Information: bmp every 3 days while on Acyclovir. Follow up with Dr Jiang - infectious disease in 1 week. Call if creatinine greater than 2.[address] Viveros [phone] Fax number [phone]. - Patient Information Allergies No Known Allergies Allergy (Verified 08/29/18 17:04)
[2018-09-02] MEDS: Thiamine Inj 100 MG in Sodium Chlor 0.9% Inj 100 ML IV.SIG SCH (21:10)
[2018-09-03] MEDS: Sod Chloride 0.9% Inj 1,000 ML IV.CONT SCH ×2 (01:37→10:17)
[2018-09-03] MEDS: ACYCLOVIR IV.SIG SCH (05:44)
[2018-09-03] MEDS: SODIUM CHLOR 0.9% IV.SIG SCH (05:44)
[2018-09-03 06:44] LABS: Baso % (Auto) 0.4 % (0.0-2.0); Eos # (Auto) 0.1 th/mm3 (0.0-0.4); Hematocrit 38.6 % (35.0-46.0); Hemoglobin 13.3 gm/dL (11.6-15.3); Lymph # (Auto) 0.9 th/mm3 (1.0-4.8); Lymph % (Auto) 9.6 % (9.0-44.0); Mean Corpuscular HGB Conc 34.4 % (32.0-36.0); Mean Corpuscular Hemoglobin 31.2 pg (27.0-34.0); Mean Corpuscular Volume 90.7 fL (80.0-100.0); Mean Platelet Volume 7.4 fL (7.0-11.0); Mono # (Auto) 0.9 th/mm3 (0.0-0.9); Mono % (Auto) 9.5 % (0.0-8.0); Neut # (Auto) 7.9 th/mm3 (1.8-7.7); Neut % (Auto) 79.5 % (16.0-70.0); Platelet Count 241 th/mm3 (150-450); Red Blood Count 4.26 mil/mm3 (4.00-5.30); Red Cell Distribution Width 11.6 % (11.6-17.2); White Blood Count 9.8 th/mm3 (4.0-11.0)
--- NOTE | 2018-09-03 09:08 | P.PNIM ---
Subjective Interval history: f/u; viral encephalitis overall looks and feels much better. no headache. no fever. wants to go home. Physical Exam Vital signs: Vital Signs 09/02/18 12:00 09/02/18 16:00 09/02/18 20:00 Temperature 98.0 F 98.6 F Pulse Rate 107 H 106 H 89 Respiratory Rate 16 16 Blood Pressure 154/74 H 144/73 H Pulse Oximetry 96 96 09/02/18 21:43 09/03/18 00:00 09/03/18 04:00 Temperature 98.7 F 99.0 F 98.7 F Pulse Rate 93 H 117 H 90 Respiratory Rate 16 16 16 Blood Pressure 160/89 H 136/76 139/81 Pulse Oximetry 94 L 95 93 L Intake & Output 09/02/18 09/03/18 09/03/18 18:59 06:59 18:59 Intake Total 1720 / 1720 1205.4 / 1205.4 112.2 / 112.2 Balance 1720 / 1720 1205.4 / 1205.4 112.2 / 112.2 Weight 122.2 kg 122.2 kg Intake: IV 1000 / 1000 325.4 / 325.4 112.2 / 112.2 NS Inj 1,000 ML @ 100 mls/hr IV 1000 / 1000 .CONT .Q10H [facility] Rx#:[id number] Zovirax Inj 610 MG In NS Inj 224.4 / 224.4 112.2 / 112.2 100 ML @ 112.2 mls/hr IV.SIG Q8H [facility] Rx#:[id number] Thiamine Inj 100 MG In NS Inj 101 / 101 100 ML @ 100 mls/hr IV.SIG DAILY@2000 [facility] Rx#:[id number] Oral 720 / 720 880 / 880 Other: # Voids 5 2 # Bowel Movements 0 - Constitutional no acute distress - Routine Respiratory Exam Present: CTA bilaterally - Routine Cardiovascular Exam Present: RRR - Routine Abdominal Exam Present: soft - Routine Extremities Exam Comments: no pedal edema. - Routine Neurological Exam Present: alert, oriented X3 Results - Labs CBC & Chem 7: 09/03/18 06:30 09/02/18 06:10 Laboratory Results - last 24 hr 09/03/18 06:30 CBC w Diff Auto diff final WBC 9.8 RBC 4.26 Hgb 13.3 Hct 38.6 MCV 90.7 MCH 31.2 MCHC 34.4 RDW 11.6 Plt Count 241 MPV 7.4 Neut % (Auto) 79.5 H Lymph % (Auto) 9.6 [place] % (Auto) 9.5 H Eos % (Auto) 1.0 Baso % (Auto) 0.4 Neut # (Auto) 7.9 H Lymph # (Auto) 0.9 L [place] # (Auto) 0.9 Eos # (Auto) 0.1 Baso # (Auto) 0.0 WBC Differential . Differential Comment . Microbiology 08/31/18 11:30 Blood - Peripheral Aerobic Blood Culture - Preliminary No growth in 2 days 08/31/18 11:30 Blood - Peripheral Anaerobic Blood Culture - Preliminary No growth in 2 days 08/31/18 11:20 Blood - Peripheral Aerobic Blood Culture - Preliminary No growth in 2 days 08/31/18 11:20 Blood - Peripheral Anaerobic Blood Culture - Preliminary No growth in 2 days 08/30/18 17:48 Lumbar Puncture Gram Stain - Final 08/30/18 17:48 Lumbar Puncture CSF Culture - Final No growth in 72 hours - Procedures LP Assessment and Plan - Plan A/P - acute encephalopathy due to viral Encephalitis- now has much improved. 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 Differential diagnosis includes prior infection, trauma or vascular insult. s/p LP; HSV PCR positive- cultures negative so far. continue with Acyclovir/ Keppra was added- Neurology consult appreciated- EEG with mild Encephalopathy. ID consult appreciated and plan for 21 days of IV Acyclovir. patient needs to have a f/u with ID and Neurology; maintenance therapy will be deferred to outpatient f/u with ID and neurology. -hypertension; patient is not on any home meds and says that she was trying to control the blood pressure with diet. BP has improved; continue Amlodipine 10 mg daily- continue HCTZ- -leukocytosis-improving and afebrile-blood cultures negative so far- consulted ID as noted above. -elevated troponin with reported chest pain ( 08/30); troponin level stable- currently chest pain free- stress test with no ischemia but with anteroapical wall focal dyskinesia. echo with EF 60% and no regional wall motion abnormalities- previously d/w and no further w/u at this time. -Hypokalemia; replaced. -DVT prophylaxis with SCD's. Discharge Planning: dc home today with HHC- when PICC line in place and outpatient IV antiviral has been set up. see med list. f/u; pcp, ID and neurology. d/w the patient. previously d/w .
--- NOTE | 2018-09-03 09:08 | P.DS ---
Date of admission: 08/29/18 18:19 Primary care physician: Dell Ennis MD Brief History from admission: patient is a 72 y/o female with history of viral encephalitis in the past was brought to ER with altered mentals status. at the time of my evaluation she was awake and fully oriented. she says that she doesn't fully remember what happened yesterday but she says that ' I was brought to ER by my children because I was confused'. she denies any fever or chills. she's complaining of mild headache but with no nausea or vomiting. she was also complaining of some chest pressure with no sob, diaphoresis. DS: Summary Hospital Course: - acute encephalopathy due to viral Encephalitis- now has much improved. 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 Differential diagnosis includes prior infection, trauma or vascular insult. s/p LP; HSV PCR positive- cultures negative so far. continue with Acyclovir/ Keppra was added- Neurology consult appreciated- EEG with mild Encephalopathy. ID consult appreciated and plan for 21 days of IV Acyclovir. patient needs to have a f/u with ID and Neurology; maintenance therapy will be deferred to outpatient f/u with ID and neurology. -hypertension; patient is not on any home meds and says that she was trying to control the blood pressure with diet. BP has improved; continue Amlodipine 10 mg daily- continue HCTZ- -leukocytosis-improving and afebrile-blood cultures negative so far- consulted ID as noted above. -elevated troponin with reported chest pain ( 08/30); troponin level stable- currently chest pain free- stress test with no ischemia but with anteroapical wall focal dyskinesia. echo with EF 60% and no regional wall motion abnormalities- previously d/w and no further w/u at this time. -Hypokalemia; replaced. - Time Spent with Patient Total time spent providing and/or coordinating discharge services: Less than 30 minutes - Quality: VTE Deep Vein Thrombosis/Pulmonary Embolism Present on Admission: No Exam Vital signs: Vital Signs 09/02/18 12:00 09/02/18 16:00 09/02/18 20:00 Temperature 98.0 F 98.6 F Pulse Rate 107 H 106 H 89 Respiratory Rate 16 16 Blood Pressure 154/74 H 144/73 H Pulse Oximetry 96 96 09/02/18 21:43 09/03/18 00:00 09/03/18 04:00 Temperature 98.7 F 99.0 F 98.7 F Pulse Rate 93 H 117 H 90 Respiratory Rate 16 16 16 Blood Pressure 160/89 H 136/76 139/81 Pulse Oximetry 94 L 95 93 L Intake & Output 09/02/18 09/03/18 09/03/18 18:59 06:59 18:59 Intake Total 1720 / 1720 1205.4 / 1205.4 112.2 / 112.2 Balance 1720 / 1720 1205.4 / 1205.4 112.2 / 112.2 Weight 122.2 kg 122.2 kg Intake: IV 1000 / 1000 325.4 / 325.4 112.2 / 112.2 NS Inj 1,000 ML @ 100 mls/hr IV 1000 / 1000 .CONT .Q10H [facility] Rx#:[id number] Zovirax Inj 610 MG In NS Inj 224.4 / 224.4 112.2 / 112.2 100 ML @ 112.2 mls/hr IV.SIG Q8H [facility] 234 BEDS AT [facility] Rx#:[id number] Thiamine Inj 100 MG In NS Inj 101 / 101 100 ML @ 100 mls/hr IV.SIG DAILY@2000 COUNTS [facility]CLUDE 234 BEDS AT THE [facility] Rx#:[id number] Oral 720 / 720 880 / 880 Other: # Voids 5 2 # Bowel Movements 0 - Constitutional no acute distress - Routine Respiratory Exam Present: CTA bilaterally - Routine Cardiovascular Exam Present: RRR - Routine Abdominal Exam Present: soft - Routine Extremities Exam Comments: no pedal edema. - Routine Neurological Exam Present: alert Results Procedures completed during hospitalization: LP Labs on day of discharge: Labs from last 24 hours 09/03/18 06:30 CBC w Diff Auto diff final WBC 9.8 RBC 4.26 Hgb 13.3 Hct 38.6 MCV 90.7 MCH 31.2 MCHC 34.4 RDW 11.6 Plt Count 241 MPV 7.4 Neut % (Auto) 79.5 H Lymph % (Auto) 9.6 [place] % (Auto) 9.5 H Eos % (Auto) 1.0 Baso % (Auto) 0.4 Neut # (Auto) 7.9 H Lymph # (Auto) 0.9 L [place] # (Auto) 0.9 Eos # (Auto) 0.1 Baso # (Auto) 0.0 WBC Differential . Differential Comment . Preliminary micro results at discharge 08/31/18 11:30 Aerobic Blood Culture - Preliminary Blood - Peripheral No growth in 2 days Anaerobic Blood Culture - Preliminary No growth in 2 days 08/31/18 11:20 Aerobic Blood Culture - Preliminary Blood - Peripheral No growth in 2 days Anaerobic Blood Culture - Preliminary No growth in 2 days - Impressions ITS Impressions Head MRI 08/29/18 00:00 CONCLUSION: 1. 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 Differential diagnosis includes prior infection, trauma or vascular insult. 2. No recent infarct identified. Head CT 08/29/18 17:04 CONCLUSION: 1. No acute intracranial abnormalities. . Lumbar Puncture Fluoroscopy 08/30/18 11:30 CONCLUSION: 1. Uncomplicated fluoroscopically guided lumbar puncture. Clear CSF noted. Samples to the lab as requested. Myocardial Perfusion Scan Nuc Med 08/31/18 00:00 CONCLUSION: 1. No evidence to suggest ischemic myocardial changes. 2. Focal dyskinesia involving the anteroapical wall. Discharge Plan - Discharge Disposition Patient Disposition: Disch W/Home Health Service - Discharge Condition Condition: Fair - Physicians Team Primary Care Provider: Dell Ennis Attending Provider: Logan Spaulding Other Providers: Saleem Haddad MD ; Ovi Bashir MD ; [employer], [employer] ; Jaime Viveros MD
[2018-09-03 09:24] VITALS: BP 146/71; PULSE 107; RESP 21; TEMP 98.1; O2SAT 95
[2018-09-03] MEDS ORDERED: Heparin Central Flush 100 UNIT/ML 5 ML Vial IV.FLUSH PRN (09:33)
[2018-09-03] MEDS ORDERED: Heparin Central Flush 100 UNIT/ML 5 ML Vial IV.FLUSH SCH (09:45)
[2018-09-03] MEDS: hydroCHLOROthiazide 25 MG Tablet PO SCH (10:17)
[2018-09-03] MEDS: levETIRAcetam 500 MG Tablet PO SCH (10:18)
[2018-09-03] MEDS: amLODIPine 10 MG Tablet PO SCH (10:18)
== END 2018-09-03 13:10 | disposition home health service (06) ==
LOC: PHEDA 16:39 → PHED 16:39 → PHEDA 19:49 → PH3 19:53
PROVIDERS: ADMIT Internal Medicine; ATTEND Internal Medicine